=== PATIENT | male | born 1950 | race Caucasian/White ===

== ENCOUNTER 2022-10-07 10:10 | Inpatient (IN) | payer OTHER ==
--- OUTSIDE RECORDS SUMMARY | 2022-10-07 10:16 | XMS REPORT | Continuity of Care Document ---
:1950 Author Organization [facility] t Address [address] [place] [address] [address] [place] [address] Care Team Providers Name Role Phone PANT ANN COELLO Attending Clinician Unavailable LILIBETH GUEVARA Attending Clinician Unavailable A_Carlos Attending Clinician Unavailable RAÚL Attending Clinician Unavailable EDMAR_Mariana Attending Clinician Unavailable NATHANIEL HYATT Attending Clinician Unavailable A_Carlos Admitting Clinician Unavailable RAÚL Admitting Clinician Unavailable EDMAR_G Admitting Clinician Unavailable NATHANIEL HYATT Admitting Clinician Unavailable Payers Payer Name Policy Type Policy Number Effective Date Expiration Date S apurva [facility] [id number] 2022 (MEDICARE 00:00:00 REPLACEMENT/ADVANTA GE - HMO) [employer] - MEDICARE [id number] COMPLETE (MEDICARE REPLACEMENT HMO) [facility] - [id number] MEDICARE SOLUTIONS - MEDICARE COMPLETE (MEDICARE REPLACEMENT PPO) [facility] - [id number] PHYSICIAN HEALTH CHOICE (MEDICARE REPLACEMENT HMO) Problems Condition Condition Condition Status Onset Resolution Last Treating Co mments Source Name Details Category Date Date Treatment Clinician Date 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 00:00: Medica l of colon of Colon 00 Group and/or And/or rectum Rectum 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 Lung 00:00: Medical disease Disease 00 Group Unintentio Unintentio Problem Active [facility] nal weight nal Weight 3-14 da loss Loss 00:00: Medical 00 Group 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 Social History Smoking Status Start Date Stop Date Source Former Smoker [facility] Medications Ordered Filled Start Stop Current Ordering Indication Dosage Frequency Signature Comments Components Source Medication Medication Date Date Medication? Clinician (SIG) Name Name albuterol albuterol No 2puff(s Q4H albuterol [place] sulfate 90 sulfate 90 ) sulfate 90 da mcg/actuati mcg/actuati mcg/actuat Medical on breath on breath ion breath Group activated activated activated powder powder powder inhaler inhaler inhaler Inhale 2 Inhale 2 Inhale 2 puffs every puffs every puffs 4 hours by 4 hours by every 4 inhalation inhalation hours by route. route. inhalation route. atorvastati atorvastati No 1 Q1D atorvastat [place] n 80 mg n 80 mg in 80 mg da tablet Take tablet Take tablet Medical 1 tablet 1 tablet Take 1 Group every day every day tablet by oral by oral every day route. route. by oral route. budesonide- budesonide- No 2puff(s BID budesonide [place] formoterol formoterol ) -formotero da HFA 80 HFA 80 l HFA 80 Medical mcg-4.5 mcg-4.5 mcg-4.5 Group mcg/actuati mcg/actuati mcg/actuat on aerosol on aerosol ion inhaler inhaler aerosol Inhale 2 Inhale 2 inhaler puffs twice puffs twice Inhale 2 a day by a day by puffs inhalation inhalation twice a route. route. day by inhalation route. ezetimibe ezetimibe No 1 Q1D ezetimibe [facility] 10 mg 10 mg 10 mg da tablet Take tablet Take tablet Medical 1 tablet 1 tablet Take 1 Group every day every day tablet by oral by oral every day route. route. by oral route. isosorbide isosorbide No 1 Q1D isosorbide [facility] mononitrate mononitrate mononitrat da ER 30 mg ER 30 mg e ER 30 mg M edical tablet,exte tablet,exte tablet,ext Group nded nded ended release 24 release 24 release 24 hr Take 1 hr Take 1 hr Take 1 tablet tablet tablet every day every day every day by oral by oral by oral route. route. route. lisinopril lisinopril No 1 Q1D lisinopril [facility] 5 mg tablet 5 mg tablet 5 mg d a Take 1 Take 1 tablet Medical tablet tablet Take 1 Group every day every day tablet by oral by oral every day route. route. by oral route. Low Dose Low Dose No 1 Q1D Low Dose [facility] Aspirin 81 Aspirin 81 Aspirin 81 da mg mg mg Medical tablet,dilip tablet,dilip tablet,del Group yed release yed release ayed Take 1 Take 1 release tablet tablet Take 1 every day every day tablet by oral by oral every day route. route. by oral route. metoprolol metoprolol No 1 BID metoprolol [place] tartrate 25 tartrate 25 tartrate da mg tablet mg tablet 25 mg Medi bonnie Take 1 Take 1 tablet Group tablet tablet Take 1 twice a day twice a day tablet by oral by oral twice a route. route. day by oral route. sertraline sertraline No 1 Q1D sertraline [facility] 100 mg 100 mg 100 mg da tablet Take tablet Take tablet Medical 1 tablet 1 tablet Take 1 Group every day every day tablet by oral by oral every day route. route. by oral route. atorvastati atorvastati No 1 Q1D atorvastat [place] n 80 mg n 80 mg in 80 mg da tablet Take tablet Take tablet Medical 1 tablet 1 tablet Take 1 Group every day every day tablet by oral by oral every day route. route. by oral route. ezetimibe ezetimibe No 1 Q1D ezetimibe [place] 10 mg 10 mg 10 mg da tablet Take tablet Take tablet Medical 1 tablet 1 tablet Take 1 Group every day every day tablet by oral by oral every day route. route. by oral route. isosorbide isosorbide No 1 Q1D isosorbide [facility] mononitrate mononitrate mononitrat da ER 30 mg ER 30 mg e ER 30 mg M edical tablet,exte tablet,exte tablet,ext Group nded nded ended release 24 release 24 release 24 hr Take 1 hr Take 1 hr Take 1 tablet tablet tablet every day every day every day by oral by oral by oral route. route. route. lisinopril lisinopril No 1 Q1D lisinopril [facility] 5 mg tablet 5 mg tablet 5 mg d a Take 1 Take 1 tablet Medical tablet tablet Take 1 Group every day every day tablet by oral by oral every day route. route. by oral route. Low Dose Low Dose No 1 Q1D Low Dose [facility] Aspirin 81 Aspirin 81 Aspirin 81 da mg mg mg Medical tablet,dilip tablet,dilip tablet,del Group yed release yed release ayed Take 1 Take 1 release tablet tablet Take 1 every day every day tablet by oral by oral every day route. route. by oral route. metoprolol metoprolol No 1 BID metoprolol [place] tartrate 25 tartrate 25 tartrate da mg tablet mg tablet 25 mg Medi bonnie Take 1 Take 1 tablet Group tablet tablet Take 1 twice a day twice a day tablet by oral by oral twice a route. route. day by oral route. sertraline sertraline No 1 Q1D sertraline [place] 100 mg 100 mg 100 mg da tablet Take tablet Take tablet Medical 1 tablet 1 tablet Take 1 Group every day every day tablet by oral by oral every day route. route. by oral route. tamsulosin tamsulosin No tamsulosin [facility] 0.4 mg 0.4 mg 0.4 mg da capsule capsule capsule Medica l TAKE 1 TAKE 1 TAKE 1 Group CAPSULE BY CAPSULE BY CAPSULE BY MOUTH ONCE MOUTH ONCE MOUTH ONCE DAILY TAKE DAILY TAKE DAILY TAKE FOR URINE FOR URINE FOR URINE PROBLEMS PROBLEMS PROBLEMS atorvastati atorvastati No 1 Q1D atorvastat [place] n 80 mg n 80 mg in 80 mg da tablet Take tablet Take tablet Medical 1 tablet 1 tablet Take 1 Group every day every day tablet by oral by oral every day route. route. by oral route. ezetimibe ezetimibe No 1 Q1D ezetimibe [facility] 10 mg 10 mg 10 mg da tablet Take tablet Take tablet Medical 1 tablet 1 tablet Take 1 Group every day every day tablet by oral by oral every day route. route. by oral route. isosorbide isosorbide No 1 Q1D isosorbide [place] mononitrate mononitrate mononitrat da ER 30 mg ER 30 mg e ER 30 mg M edical tablet,exte tablet,exte tablet,ext Group nded nded ended release 24 release 24 release 24 hr Take 1 hr Take 1 hr Take 1 tablet tablet tablet every day every day every day by oral by oral by oral route. route. route. lisinopril lisinopril No 1 Q1D lisinopril [facility] 5 mg tablet 5 mg tablet 5 mg d a Take 1 Take 1 tablet Medical tablet tablet Take 1 Group every day every day tablet by oral by oral every day route. route. by oral route. Low Dose Low Dose No 1 Q1D Low Dose [facility] Aspirin 81 Aspirin 81 Aspirin 81 da mg mg mg Medical tablet,dilip tablet,dilip tablet,del Group yed release yed release ayed Take 1 Take 1 release tablet tablet Take 1 every day every day tablet by oral by oral every day route. route. by oral route. metoprolol metoprolol No 1 BID metoprolol [place] tartrate 25 tartrate 25 tartrate da mg tablet mg tablet 25 mg Medi bonnie Take 1 Take 1 tablet Group tablet tablet Take 1 twice a day twice a day tablet by oral by oral twice a route. route. day by oral route. sertraline sertraline No 1 Q1D sertraline [place] 100 mg 100 mg 100 mg da tablet Take tablet Take tablet Medical 1 tablet 1 tablet Take 1 Group every day every day tablet by oral by oral every day route. route. by oral route. tamsulosin tamsulosin No 1capsul Q1D tamsulosin [facility] 0.4 mg 0.4 mg e(s) 0.4 mg da capsule capsule capsule Medica l Take 1 Take 1 Take 1 Group capsule capsule capsule every day every day every day by oral by oral by oral route. route. route. atorvastati atorvastati No 1 Q1D atorvastat [place] n 80 mg n 80 mg in 80 mg da tablet Take tablet Take tablet Medical 1 tablet 1 tablet Take 1 Group every day every day tablet by oral by oral every day route. route. by oral route. ezetimibe ezetimibe No 1 Q1D ezetimibe [facility] 10 mg 10 mg 10 mg da tablet Take tablet Take tablet Medical 1 tablet 1 tablet Take 1 Group every day every day tablet by oral by oral every day route. route. by oral route. isosorbide isosorbide No 1 Q1D isosorbide [place] mononitrate mononitrate mononitrat da ER 30 mg ER 30 mg e ER 30 mg M edical tablet,exte tablet,exte tablet,ext Group nded nded ended release 24 release 24 release 24 hr Take 1 hr Take 1 hr Take 1 tablet tablet tablet every day every day every day by oral by oral by oral route. route. route. lisinopril lisinopril No 1 Q1D lisinopril [facility] 5 mg tablet 5 mg tablet 5 mg d a Take 1 Take 1 tablet Medical tablet tablet Take 1 Group every day every day tablet by oral by oral every day route. route. by oral route. Low Dose Low Dose No 1 Q1D Low Dose [facility] Aspirin 81 Aspirin 81 Aspirin 81 da mg mg mg Medical tablet,dilip tablet,dilip tablet,del Group yed release yed release ayed Take 1 Take 1 release tablet tablet Take 1 every day every day tablet by oral by oral every day route. route. by oral route. metoprolol metoprolol No 1 BID metoprolol [facility] tartrate 25 tartrate 25 tartrate da mg tablet mg tablet 25 mg Medi bonnie Take 1 Take 1 tablet Group tablet tablet Take 1 twice a day twice a day tablet by oral by oral twice a route. route. day by oral route. sertraline sertraline No 1 Q1D sertraline [facility] 100 mg 100 mg 100 mg da tablet Take tablet Take tablet Medical 1 tablet 1 tablet Take 1 Group every day every day tablet by oral by oral every day route. route. by oral route. tamsulosin tamsulosin No tamsulosin [place] 0.4 mg 0.4 mg 0.4 mg da capsule capsule capsule Medica l TAKE 1 TAKE 1 TAKE 1 Group CAPSULE BY CAPSULE BY CAPSULE BY MOUTH ONCE MOUTH ONCE MOUTH ONCE DAILY TAKE DAILY TAKE DAILY TAKE FOR URINE FOR URINE FOR URINE PROBLEMS PROBLEMS PROBLEMS Vital Signs Vital Name Observation Time Observation Value Comments Source BP Diastolic 2022-09-09 00:00:00 69 mm[Hg] [facility] Height 2022-09-09 00:00:00 67.25 [in_i] [facility] BMI (Body Mass 2022-09-09 00:00:00 24[facility]8 [facility] BP Systolic 2022-09-09 00:00:00 119 mm[Hg] [facility] Body Weight 2022-09-09 00:00:00 2555.2 [oz_av] [facility] BP Diastolic 2022-09-02 00:00:00 65 mm[Hg] [facility] Height 2022-09-02 00:00:00 67.25 [in_i] [facility] BMI (Body Mass 2022-09-02 00:00:00 24.8 [facility] BP Systolic 2022-09-02 00:00:00 105 mm[Hg] [facility] Body Weight 2022-09-02 00:00:00 2550.4 [oz_av] [facility] BP Diastolic 2022-08-26 00:00:00 77 mm[Hg] [facility] Height 2022-08-26 00:00:00 67.25 [in_i] [facility] BMI (Body Mass 2022-08-26 00:00:00 24.8 [facility]/m2 [facility] BP Systolic 2022-08-26 00:00:00 145 mm[Hg] [facility] Body Weight 2022-08-26 00:00:00 2547.2 [oz_av] [facility] BP Diastolic 2020-02-07 00:00:00 62 mm[Hg] [facility] Height 2020-02-07 00:00:00 69 [in_i] [facility] BMI (Body Mass 2020-02-07 00:00:00 25.6 [facility] BP Systolic 2020-02-07 00:00:00 136 mm[Hg] [facility] Body Weight 2020-02-07 00:00:00 173.6 [lb_av] [facility] BP Diastolic 2020-01-10 00:00:00 68 mm[Hg] [facility] Height 2020-01-10 00:00:00 69 [in_i] [facility] BMI (Body Mass 2020-01-10 00:00:00 27.7 kg/m2 [facility] Medical Index) Group BP Systolic 2020-01-10 00:00:00 140 mm[Hg] [facility] Body Weight 2020-01-10 00:00:00 187.8 [lb_av] [facility] BP Diastolic 2019-08-11 00:00:00 78 mm[facility]Hg] [facility] Height 2019-08-11 00:00:00 69 [in_i] [facility] BMI (Body Mass 2019-08-11 00:00:00 27 kg/m2 [facility] Medical Index) Group BP Systolic 2019-08-11 00:00:00 140 mm[facility]Hg] [facility] Body Weight 2019-08-11 00:00:00 182.6 [lb_av] [facility] Procedures Procedure Date / Time Performed Performing Clinician Sour e NM, bone scan, whole 2022-09-09 00:00:00 [facility] body Group US, abdomen, complete 2022-08-26 00:00:00 [facility] Group LDCT, chest, for lung 2022-08-26 00:00:00 [facility] Medical cancer screening Group NM, bone scan, whole 2022-08-26 00:00:00 [facility] Medical body Group Plan of Care Planned Activity Planned Date Details Comments Source Diagnostic Test 2022-08-26 TSH, serum or plasma Richardson maranda [employer] Pending 00:00:00 [code = TSH, serum or Group plasma] Diagnostic Test 2022-08-26 CMP, serum or plasma Richardson maranda [employer] Pending 00:00:00 [code = CMP, serum or Group plasma] Diagnostic Test 2022-08-26 CBC w/ auto diff [code = [facility] Pending 00:00:00 CBC w/ auto diff] Group Diagnostic Test 2022-08-26 hemoglobin A1c, QN, [facility] Pending 00:00:00 blood [code = hemoglobin Leah up A1c, QN, blood] Diagnostic Test 2022-08-26 PSA, serum or plasma [facility] Pending 00:00:00 [code = PSA, serum or Group plasma] Diagnostic Test 2022-08-26 urinalysis, complete [facility] Pending 00:00:00 [code = urinalysis, Group complete] Diagnostic Test 2022-08-26 carcinoembryonic Ag, [facility] Pending 00:00:00 quant, serum or plasma Group [code = carcinoembryonic Ag, quant, serum or plasma] Encounters Start End Encounter Admission Attending Care Care Encounter Source Date/Time Date/Time Type Type Clinicians Facility Department ID 2022-10-01 2022-10-01 Outpatient EL PANT [facility] [id number] [facility] 07:38:00 07:38:00 MODE, -[id number] kay white [facility] 2022-09-10 2022-09-10 Outpatient LILIBETH MURILLO [facility] D000 [id number] [place] 10:34:00 10:34:00 -[id number] [facility] 2022-09-09 2022-09-09 Outpatient UR LILIBETH GUEVARA [facility] D000 [id number] [place] 11:21:00 11:21:00 -[id number] [facility] 2022-09-09 2022-09-09 Lilibeth MCCONNELL [place] - [id number] [facility] 00:00:00 00:00:00 MD Carlos: [address] [place] [address] , Ph. 2022-09-04 2022-09-04 Inpatient LILIBETH MURILLO [facility] [id number] [place] 08:00:00 07:54:00 -[id number] [facility] 2022-09-02 2022-09-02 Lilibeth MCCONNELL [place] - [id number] [facility] 00:00:00 00:00:00 MD Carlos: [address] [place] [address] , Ph. 2022-08-26 2022-08-26 Outpatient EL LILIBETH GUEVARA [facility] D000 [id number] [place] 10:28:00 10:28:00 -[id number] [facility] 2022-08-26 2022-08-26 [place] [id number] [place] 00:00:00 00:00:00 0314 [facility] 2022-08-26 2022-08-26 [place] [id number] [place] 00:00:00 00:00:00 0321 [facility] 2022-08-26 2022-08-26 [place] [id number] [place] 00:00:00 00:00:00 0328 [facility] 2022-08-26 2022-08-26 Lilibeth Goodwin [facility] [place] - [id number] [facility] 00:00:00 00:00:00 MD Carlos: [facility] [address] [place] [address] [address], [place] [address] , Ph. 2021-12-27 2021-12-27 Outpatient AMBREEN_CHRIS BANSAL [facility] [id number] [place] 12:47:00 12:47:00 HANA 0715 [facility] 2020-05-02 2020-05-02 Outpatient IHDE_G MMG [facility] [id number] [place] 02:25:00 02:25:00 1118 [facility] 2020-02-07 2020-02-07 [place] [id number] [place] 08:47:00 08:47:00 0825 [facility] 2020-02-07 2020-02-07 Nathaniel [facility] [place] - [id number] [facility] 00:00:00 00:00:00 Vel Umana MD: [facility] [address], [place] [address] , Ph. [phone] 2020-02-01 2020-02-01 Outpatient IHDE_G MMG MMG [id number] [place] 09:59:00 09:59:00 0819 [facility] 2020-01-23 2020-01-27 Inpatient SYED IHDNATHANIEL Chan [facility] [id number] [place] 17:20:00 16:32:00 -[id number] [facility] 2020-01-23 2020-01-23 Outpatient IHDE_G MMG MMG [id number] [place] 02:28:00 02:28:00 0810 [facility] 2020-01-18 2020-01-18 Outpatient IHDE_G MMG MMG [id number] [place] 09:28:00 09:28:00 0806 [facility] 2020-01-18 2020-01-18 Outpatient NATHANIEL PACK [facility] [id number] [place] 08:34:00 08:34:00 -[id number] [facility] 2020-01-10 2020-01-10 Outpatient IHDE_G MMG MMG [id number] [place] 07:10:00 07:10:00 0728 [facility] 2020-01-10 2020-01-10 Nathaniel MMG [place] - [id number] [facility] 00:00:00 00:00:00 Vel Umana MD: [facility] [address], surgery [place] [address] , Ph. [phone] 2019-08-11 2019-08-11 Outpatient IHDE_G MMG MMG [id number] [place] 08:06:00 08:06:00 0227 [facility] 2019-08-11 2019-08-11 Nathaniel MM [place] - [id number] [facility] 00:00:00 00:00:00 Vel Umana MD: [facility] [address], surgery [place] [id number] , Ph. [phone] 2019-08-08 2019-08-08 Outpatient IHDE_G MMG MMG [id number] [place] 11:11:00 11:11:00 0224 Medical Group 2019-08-08 2019-08-08 Outpatient IHDE_G MMG [facility] [id number] [place] 11:11:00 11:11:00 6 [facility] Group Results Test Description Test Time Test Comments Results Result Comments Source manual diff (reflexed) 2022-08-26 13:14:00 Test Item Value Reference Range Interpretation Comme nts neutrophils (test code = neutrophils) 82 % 37.0-80.0 H band (test code = band) 0 % 0-3 lymphocyte (test code = lymphocyte) 4 % 10-50 L atypical lymph (test code = atypical lymph) 0 % monocyte (test code = monocyte) 14 % 0-12 H eosinophil (test code = eosinophil) 0 % 0-7 basophil (test code = basophil) 0 % 0-3 differential comment (test code = differential comment) abs neutrophil count (man) (test code = abs neutrophil 12.60 K/uL 1.78-5.38 H count (man)) abs lymph count (man) (test code = abs lymph count (man)) 0.60 K/uL 1.32-3.57 L abs monocyte count (man) (test code = abs monocyte count 2.10 K/uL 0.30-0.82 H (man)) abs eosinophil count (man) (test code = abs eosinophil 0.00 K/uL 0.04-0.54 L count (man)) abs basophil count (man) (test code = abs basophil count 0.00 K/uL 0.01-0.08 L (man)) platelet estimate (test code = platelet estimate) adequate adeq uate platelet morphology (test code = platelet morphology) normal normal anisocytosis (test code = anisocytosis) slight A macrocytosis (test code = macrocytosis) slight A stomatocyte (test code = stomatocyte) occassional A [facility]2022-08-26 13:14:00 Test Item Value Reference Range Interpretation Comments neutrophils (test code = 82 % 37.0-80.0 H neutrophils) band (test code = band) 0 % 0-3 lymphocyte (test code = 4 % 10-50 L lymphocyte) atypical lymph (test code = 0 % atypical lymph) monocyte (test code = monocyte) 14 % 0-12 H eosinophil (test code = 0 % 0-7 eosinophil) basophil (test code = basophil) 0 % 0-3 differential comment (test code = differential comment) abs neutrophil count (man) (test 12.60 K/uL 1.78-5.38 H code = abs neutrophil count (man)) abs lymph count (man) (test code 0.60 K/uL 1.32-3.57 L = abs lymph count (man)) abs monocyte count (man) (test 2.10 K/uL 0.30-0.82 H code = abs monocyte count (man)) abs eosinophil count (man) (test 0.00 K/uL 0.04-0.54 L code = abs eosinophil count (man)) abs basophil count (man) (test 0.00 K/uL 0.01-0.08 L code = abs basophil count (man)) platelet estimate (test code = adequate adequate platelet estimate) platelet morphology (test code = normal normal platelet morphology) anisocytosis (test code = slight A anisocytosis) macrocytosis (test code = slight A macrocytosis) stomatocyte (test code = occassional A stomatocyte) [facility] [id number] 12:13:00 Test Item Value Reference Range Interpretation Comments thyroid stimulating hormone L 2.42 uIU/mL 0.36-3.74 (test code = thyroid stimulating hormone L) [facility] [id number] 12:13:00 Test Item Value Reference Range Interpretation Comments thyroid stimulating hormone L 2.42 uIU/mL 0.36-3.74 (test code = thyroid stimulating hormone L) [facility] [id number] 12:13:00 Test Item Value Reference Range Interpretation Comments thyroid stimulating hormone L 2.42 uIU/mL 0.36-3.74 (test code = thyroid stimulating hormone L) [facility] [id number] 12:13:00 Test Item Value Reference Range Interpretation Comments thyroid stimulating hormone L 2.42 uIU/mL 0.36-3.74 (test code = thyroid stimulating hormone L) [facility] 12:03:00 Test Item Value Reference Range Interpretation Comments cea (test code = cea) 65.32 NG/mL 0-4.7 [facility] prostate [id number] 12:03:00 Test Item Value Reference Range Interpretation Comments total prostate screening (test 0.90 NG/mL 0.0-4.00 code = total prostate screening) [facility]:03[facility]00 Test Item Value Reference Range Interpretation Comments cea (test code = cea) 65.32 NG/mL 0-4.7 H [facility] prostate [id number] 12:03:00 Test Item Value Reference Range Interpretation Comments total prostate screening (test 0.90 NG/mL 0.0-4.00 code = total prostate screening) [place] [id number] 12:03:00 Test Item Value Reference Range Interpretation Comments cea (test code = cea) 65.32 NG/mL 0-4.7 H [facility] prostate [id number] 12:03:00 Test Item Value Reference Range Interpretation Comments total prostate screening (test 0.90 NG/mL 0.0-4.00 code = total prostate screening) [place] [id number] 12:03:00 Test Item Value Reference Range Interpretation Comments cea (test code = cea) 65.32 NG/mL 0-4.7 H [facility] prostate [id number] 12:03:00 Test Item Value Reference Range Interpretation Comments total prostate screening (test 0.90 NG/mL 0.0-4.00 code = total prostate screening) [facility] [id number] 12:02:00 Test Item Value Reference Range Interpretation Comments Hemoglobin A1c/Hemoglobin.total in 4.8 % 4.0-6.0 Blood (test code = 4548-4) [id number] 12:02:00 Test Item Value Reference Range Interpretation Comments Hemoglobin A1c/Hemoglobin.total in 4.8 % 4.0-6.0 Blood (test code = 4548-4) [facility] 2000 [facility] - Serum or Plasma 2022-08-26 11:59:00 Test Item Value Reference Range Interpretation Comments glucose (test code = glucose) 99 mg/dL 82-115 blood urea nitrogen (test code = 12 mg/dL 8-23 blood urea nitrogen) osmolality calculated,serum (test 264 mOsm/kg 280-300 L code = osmolality calculated,serum) creatinine (test code = 0.78 mg/dL 0.70-1.20 creatinine) glomerular filtration rate (test > 60.00 code = glomerular filtration rate) BUN/creatinine ratio (test code = 15.4 12.0-20.0 BUN/creatinine ratio) sodium level (test code = sodium 132 mmol/L 135-145 L level) potassium level (test code = 4.3 mmol/L 3.5-5.2 potassium level) chloride level (test code = 92 mmol/L 98-108 L chloride level) CO2 (test code = CO2) 27 mmol/L 21-32 anion gap (test code = anion gap) 17.3 mEq/L 12.0-20.0 calcium level (test code = 9.9 mg/dL 8.8-10.2 calcium level) total protein (test code = total 7.2 g/dL 6.6-8.7 protein) albumin (test code = albumin) 3.1 g/dL 3.5-5.2 L globulin (test code = globulin) 4.1 g/dL 1.5-4.5 A/G ratio (test code = A/G ratio) 0.8 >1.0 bilirubin,total (test code = 2.0 mg/dL 0.0-1.2 H bilirubin,total) AST/SGOT (test code = AST/SGOT) 114 U/L 15-40 H ALT/SGPT (test code = ALT/SGPT) 31 U/L 0-41 alkaline phosphatase, total (test 1046 U/L 40-130 H code = alkaline phosphatase, total) [facility] - [facility] or Plasma 2022-08-26 11:59:00 Test Item Value Reference Range Interpretation Comments glucose (test code = glucose) 99 mg/dL 82-115 blood urea nitrogen (test code = 12 mg/dL 8-23 blood urea nitrogen) osmolality calculated,serum (test 264 mOsm/kg 280-300 L code = osmolality calculated,serum) creatinine (test code = 0.78 mg/dL 0.70-1.20 creatinine) glomerular filtration rate (test > 60.00 code = glomerular filtration rate) BUN/creatinine ratio (test code = 15.4 12.0-20.0 BUN/creatinine ratio) sodium level (test code = sodium 132 mmol/L 135-145 L level) potassium level (test code = 4.3 mmol/L 3.5-5.2 potassium level) chloride level (test code = 92 mmol/L 98-108 L chloride level) CO2 (test code = CO2) 27 mmol/L 21-32 anion gap (test code = anion gap) 17.3 mEq/L 12.0-20.0 calcium level (test code = 9.9 mg/dL 8.8-10.2 calcium level) total protein (test code = total 7.2 g/dL 6.6-8.7 protein) albumin (test code = albumin) 3.1 g/dL 3.5-5.2 L globulin (test code = globulin) 4.1 g/dL 1.5-4.5 A/G ratio (test code = A/G ratio) 0.8 >1.0 bilirubin,total (test code = 2.0 mg/dL 0.0-1.2 H bilirubin,total) AST/SGOT (test code = AST/SGOT) 114 U/L 15-40 H ALT/SGPT (test code = ALT/SGPT) 31 U/L 0-41 alkaline phosphatase, total (test 1046 U/L 40-130 H code = alkaline phosphatase, total) [facility] W Auto Differential panel - [id number] 11:41:00 Test Item Value Reference Range Interpretation Comments white blood count (test code = 15.4 K/uL 4.0-12.3 H white blood count) red blood count (test code = red 4.32 M/uL 3.80-5.80 blood count) hemoglobin (test code = 12.1 g/dL 11.7-17.2 hemoglobin) hematocrit (test code = 39.7 % 35.0-51.0 hematocrit) mean corpuscular volume (test code 91.9 fL 83.0-100.0 = mean corpuscular volume) mean corpuscular hemoglobin (test 28.0 pg 26.8-33.4 code = mean corpuscular hemoglobin) mean corpuscular HGB conc (test 30.5 g/dL 30.0-35.0 code = mean corpuscular HGB conc) red cell distribution width (test 17.1 % 12.0-14.0 H code = red cell distribution width) platelet count (test code = 409 K/uL 175-450 platelet count) mean platelet volume (test code = 10.2 fL 9.4-12.6 mean platelet volume) NRBC% (test code = NRBC%) 0 /100 WBC 0-0.2 NRBC# (test code = NRBC#) 0 K/uL [facility] W Auto Differential panel - [id number] 11:41:00 Test Item Value Reference Range Interpretation Comments white blood count (test code = 15.4 K/uL 4.0-12.3 H white blood count) red blood count (test code = red 4.32 M/uL 3.80-5.80 blood count) hemoglobin (test code = 12.1 g/dL 11.7-17.2 hemoglobin) hematocrit (test code = 39.7 % 35.0-51.0 hematocrit) mean corpuscular volume (test code 91.9 fL 83.0-100.0 = mean corpuscular volume) mean corpuscular hemoglobin (test 28.0 pg 26.8-33.4 code = mean corpuscular hemoglobin) mean corpuscular HGB conc (test 30.5 g/dL 30.0-35.0 code = mean corpuscular HGB conc) red cell distribution width (test 17.1 % 12.0-14.0 H code = red cell distribution width) platelet count (test code = 409 K/uL 175-450 platelet count) mean platelet volume (test code = 10.2 fL 9.4-12.6 mean platelet volume) NRBC% (test code = NRBC%) 0 /100 WBC 0-0.2 NRBC# (test code = NRBC#) 0 K/uL [id number] 11:40:00 Test Item Value Reference Range Interpretation Comments color, urine (test code = yellow color, urine) appearance, urine (test code = clear clear appearance, urine) urine glucose (test code = negative negative urine glucose) bilirubin, urine (test code = 1+ (small) negative A bilirubin, urine) ketone, urine (test code = negative negative ketone, urine) specific gravity,urine (test 1.019 1.003-1.030 code = specific gravity,urine) blood urine (test code = blood negative negative urine) pH,urine (test code = pH,urine) 6.000 5-9 protein urine (UA) (test code = 1+ (50 mg/dL) negative A protein urine (UA)) urobilinogen, urine (test code 4.0-6.0 0.2-1.0 A = urobilinogen, urine) nitrate, urine (test code = negative negative nitrate, urine) urine leukocyte esterase (test negative negative code = urine leukocyte esterase) RBC, urine (test code = RBC, 1-5 0-5 urine) WBC, urine (test code = WBC, 1-5 0-5 urine) epithelial cell (test code = 1-5 0-5 epithelial cell) bacteria, urine (test code = few none detect bacteria, urine) casts,urine (test code = 20-29 none detect A casts,urine) urine culture added? (test code no = urine culture added?) mucus, urine (test code = 1+ none detect mucus, urine) path casts,U (test code = path none detect A casts,U) [id number] 11:40:00 Test Item Value Reference Range Interpretation Comments color, urine (test code = yellow color, urine) appearance, urine (test code = clear clear appearance, urine) urine glucose (test code = negative negative urine glucose) bilirubin, urine (test code = 1+ (small) negative A bilirubin, urine) ketone, urine (test code = negative negative ketone, urine) specific gravity,urine (test 1.019 1.003-1.030 code = specific gravity,urine) blood urine (test code = blood negative negative urine) pH,urine (test code = pH,urine) 6.000 5-9 protein urine (UA) (test code = 1+ (50 mg/dL) negative A protein urine (UA)) urobilinogen, urine (test code 4.0-6.0 0.2-1.0 A = urobilinogen, urine) nitrate, urine (test code = negative negative nitrate, urine) urine leukocyte esterase (test negative negative code = urine leukocyte esterase) RBC, urine (test code = RBC, 1-5 0-5 urine) WBC, urine (test code = WBC, 1-5 0-5 urine) epithelial cell (test code = 1-5 0-5 epithelial cell) bacteria, urine (test code = few none detect bacteria, urine) casts,urine (test code = 20-29 none detect A casts,urine) urine culture added? (test code no = urine culture added?) mucus, urine (test code = 1+ none detect mucus, urine) path casts,U (test code = path none detect A casts,U) [facility] [id number] 11:40:00 Test Item Value Reference Range Interpretation Comments color, urine (test code = yellow color, urine) appearance, urine (test code = clear clear appearance, urine) urine glucose (test code = negative negative urine glucose) bilirubin, urine (test code = 1+ (small) negative A bilirubin, urine) ketone, urine (test code = negative negative ketone, urine) specific gravity,urine (test 1.019 1.003-1.030 code = specific gravity,urine) blood urine (test code = blood negative negative urine) pH,urine (test code = pH,urine) 6.000 5-9 protein urine (UA) (test code = 1+ (50 mg/dL) negative A protein urine (UA)) urobilinogen, urine (test code 4.0-6.0 0.2-1.0 A = urobilinogen, urine) nitrate, urine (test code = negative negative nitrate, urine) urine leukocyte esterase (test negative negative code = urine leukocyte esterase) RBC, urine (test code = RBC, 1-5 0-5 urine) WBC, urine (test code = WBC, 1-5 0-5 urine) epithelial cell (test code = 1-5 0-5 epithelial cell) bacteria, urine (test code = few none detect bacteria, urine) casts,urine (test code = 20-29 none detect A casts,urine) urine culture added? (test code no = urine culture added?) mucus, urine (test code = 1+ none detect mucus, urine) path casts,U (test code = path none detect A casts,U) [facility] [id number] 11:40:00 Test Item Value Reference Range Interpretation Comments color, urine (test code = yellow color, urine) appearance, urine (test code = clear clear appearance, urine) urine glucose (test code = negative negative urine glucose) bilirubin, urine (test code = 1+ (small) negative A bilirubin, urine) ketone, urine (test code = negative negative ketone, urine) specific gravity,urine (test 1.019 1.003-1.030 code = specific gravity,urine) blood urine (test code = blood negative negative urine) pH,urine (test code = pH,urine) 6.000 5-9 protein urine (UA) (test code = 1+ (50 mg/dL) negative A protein urine (UA)) urobilinogen, urine (test code 4.0-6.0 0.2-1.0 A = urobilinogen, urine) nitrate, urine (test code = negative negative nitrate, urine) urine leukocyte esterase (test negative negative code = urine leukocyte esterase) RBC, urine (test code = RBC, 1-5 0-5 urine) WBC, urine (test code = WBC, 1-5 0-5 urine) epithelial cell (test code = 1-5 0-5 epithelial cell) bacteria, urine (test code = few none detect bacteria, urine) casts,urine (test code = 20-29 none detect A casts,urine) urine culture added? (test code no = urine culture added?) mucus, urine (test code = 1+ none detect mucus, urine) path casts,U (test code = path none detect A casts,U) [facility] W Auto Differential panel - [id number] 01:31:00 Test Item Value Reference Range Interpretation Comments white blood count (test code = 9.5 K/uL 4.0-12.3 white blood count) red blood count (test code = red 2.94 M/uL 3.80-5.80 L blood count) hemoglobin (test code = 9.0 g/dL 11.7-17.2 L hemoglobin) hematocrit (test code = 28.6 % 35.0-51.0 L hematocrit) MCV [Entitic volume] (test code = 97.3 fL 83-100 48272-5) mean corpuscular hemoglobin (test 30.6 pg 26.8-33.4 code = mean corpuscular hemoglobin) mean corpuscular HGB conc (test 31.5 g/dL 30-35 code = mean corpuscular HGB conc) red cell distribution width (test 14.5 % 12.0-14.0 H code = red cell distribution width) platelet count (test code = 310 K/uL 175-450 platelet count) mean platelet volume (test code = 9.5 fL 9.4-12.6 mean platelet volume) Segmented neutrophils/100 73.8 % 44.7-82.4 leukocytes in Blood (test code = 02833-5) Immature granulocytes [#/volume] 0.0 K/uL 0.0-0.03 in Blood (test code = 86419-2) lymphocyte% (test code = 13.0 % 10.0-50.0 lymphocyte%) mono % (test code = mono %) 9.5 % 3.9-13.4 eos % (test code = eos %) 3.2 % 0.0-6.4 Basophils/100 leukocytes in 0.2 % 0.2-1.2 Unspecified specimen (test code = 49111-2) Band form neutrophils [#/volume] 7.00 K/uL 1.78-5.38 H in Blood (test code = 43039-0) Lymphocytes [#/volume] in 1.2 K/uL 1.32-3.57 L Unspecified specimen by Automated count (test code = 44511-3) mono # (test code = mono #) 0.90 K/uL 0.30-0.82 H eos # (test code = eos #) 0.30 K/uL 0.04-0.54 basophil # (test code = basophil 0.02 K/uL 0.01-0.08 #) NRBC% (test code = NRBC%) 0 /100 WBC 0-0.2 NRBC# (test code = NRBC#) 0 K/uL [facility], method unspecified - [id number] 01:31:00NeutrophilsBandLymphocyteAtypical LymphMonocyteEosinophilBasophilMyelocytePlatelet EstimatePlatelet M orphologyToxic GranulationRouleauMerit Health WesleyComprehensive metabolic 2000 panel - Serum or [id number] 01:31:00 Test Item Value Reference Range Interpretation Comments Glucose [Mass/volume] in Serum or 111 mg/dL 82-115 Plasma (test code = 2345-7) Urea nitrogen [Mass/volume] in 7 mg/dL 8-23 L Serum or Plasma (test code = 3094-0) osmolality calculated,serum (test 269 mOsm/kg 280-300 L code = osmolality calculated,serum) creatinine (test code = 0.8 mg/dL 0.70-1.20 creatinine) glomerular filtration rate (test >60.00 code = glomerular filtration rate) Urea nitrogen/Creatinine [Mass 8.8 12-20 L Ratio] in Serum or Plasma (test code = 3097-3) sodium level (test code = sodium 135 mmol/L 135-145 level) potassium level (test code = 4.3 mmol/L 3.5-5.2 potassium level) chloride level (test code = 97 mmol/L 98-108 L chloride level) CO2 (test code = CO2) 26 mmol/L 21-32 anion gap (test code = anion gap) 16.3 mEq/L 12-20 calcium level (test code = 8.6 mg/dL 8.8-10.2 L calcium level) total protein (test code = total 5.4 g/dL 6.6-8.7 L protein) albumin (test code = albumin) 2.8 g/dL 3.5-5.2 L globulin (test code = globulin) 2.6 gm/dL A/G ratio (test code = A/G ratio) 1.1 >1.0 bilirubin,total (test code = 0.6 mg/dL 0.0-1.2 bilirubin,total) AST/SGOT (test code = AST/SGOT) 12 U/L 15-40 L Alanine aminotransferase 8 U/L 0-41 [Enzymatic activity/volume] in Serum or Plasma (test code = 1742-6) Alkaline phosphatase [Enzymatic 58 U/L 40-130 activity/volume] in Serum or Plasma (test code = 6768-6) [facility] Differential [facility] - [id number] 01:31:00 Test Item Value Reference Range Interpretation Comments white blood count (test code = 9.5 K/uL 4.0-12.3 white blood count) red blood count (test code = red 2.94 M/uL 3.80-5.80 L blood count) hemoglobin (test code = 9.0 g/dL 11.7-17.2 L hemoglobin) hematocrit (test code = 28.6 % 35.0-51.0 L hematocrit) MCV [Entitic volume] (test code = 97.3 fL 83-100 34086-1) mean corpuscular hemoglobin (test 30.6 pg 26.8-33.4 code = mean corpuscular hemoglobin) mean corpuscular HGB conc (test 31.5 g/dL 30-35 code = mean corpuscular HGB conc) red cell distribution width (test 14.5 % 12.0-14.0 H code = red cell distribution width) platelet count (test code = 310 K/uL 175-450 platelet count) mean platelet volume (test code = 9.5 fL 9.4-12.6 mean platelet volume) Segmented neutrophils/100 73.8 % 44.7-82.4 leukocytes in Blood (test code = 04692-0) Immature granulocytes [#/volume] 0.0 K/uL 0.0-0.03 in Blood (test code = 30440-3) lymphocyte% (test code = 13.0 % 10.0-50.0 lymphocyte%) mono % (test code = mono %) 9.5 % 3.9-13.4 eos % (test code = eos %) 3.2 % 0.0-6.4 Basophils/100 leukocytes in 0.2 % 0.2-1.2 Unspecified specimen (test code = 51401-0) Band form neutrophils [#/volume] 7.00 K/uL 1.78-5.38 H in Blood (test code = 94284-0) Lymphocytes [#/volume] in 1.2 K/uL 1.32-3.57 L Unspecified specimen by Automated count (test code = 59401-0) mono # (test code = mono #) 0.90 K/uL 0.30-0.82 H eos # (test code = eos #) 0.30 K/uL 0.04-0.54 basophil # (test code = basophil 0.02 K/uL 0.01-0.08 #) NRBC% (test code = NRBC%) 0 /100 WBC 0-0.2 NRBC# (test code = NRBC#) 0 K/uL [facility], method unspecified - [id number] 01:31:00NeutrophilsBandLymphocyteAtypical LymphMonocyteEosinophilBasophilMyelocytePlatelet EstimatePlatelet M orphologyToxic GranulationRouleauMaPatient's Choice [facility] CountyComprehensive metabolic 2000 panel - Serum or [id number] 01:31:00 Test Item Value Reference Range Interpretation Comments Glucose [Mass/volume] in Serum or 111 mg/dL 82-115 Plasma (test code = 2345-7) Urea nitrogen [Mass/volume] in 7 mg/dL 8-23 L Serum or Plasma (test code = 3094-0) osmolality calculated,serum (test 269 mOsm/kg 280-300 L code = osmolality calculated,serum) creatinine (test code = 0.8 mg/dL 0.70-1.20 creatinine) glomerular filtration rate (test >60.00 code = glomerular filtration rate) Urea nitrogen/Creatinine [Mass 8.8 12-20 L Ratio] in Serum or Plasma (test code = 3097-3) sodium level (test code = sodium 135 mmol/L 135-145 level) potassium level (test code = 4.3 mmol/L 3.5-5.2 potassium level) chloride level (test code = 97 mmol/L 98-108 L chloride level) CO2 (test code = CO2) 26 mmol/L 21-32 anion gap (test code = anion gap) 16.3 mEq/L 12-20 calcium level (test code = 8.6 mg/dL 8.8-10.2 L calcium level) total protein (test code = total 5.4 g/dL 6.6-8.7 L protein) albumin (test code = albumin) 2.8 g/dL 3.5-5.2 L globulin (test code = globulin) 2.6 gm/dL A/G ratio (test code = A/G ratio) 1.1 >1.0 bilirubin,total (test code = 0.6 mg/dL 0.0-1.2 bilirubin,total) AST/SGOT (test code = AST/SGOT) 12 U/L 15-40 L Alanine aminotransferase 8 U/L 0-41 [Enzymatic activity/volume] in Serum or Plasma (test code = 1742-6) Alkaline phosphatase [Enzymatic 58 U/L 40-130 activity/volume] in Serum or Plasma (test code = 6768-6) [facility] W Auto Differential panel - [id number] 04:16:00 Test Item Value Reference Range Interpretation Comments white blood count (test code = 11.3 K/uL 4.0-12.3 white blood count) red blood count (test code = red 2.91 M/uL 3.80-5.80 L blood count) hemoglobin (test code = 9.0 g/dL 11.7-17.2 L hemoglobin) hematocrit (test code = 28.2 % 35.0-51.0 L hematocrit) MCV [Entitic volume] (test code = 96.9 fL 83-100 90087-5) mean corpuscular hemoglobin (test 30.9 pg 26.8-33.4 code = mean corpuscular hemoglobin) mean corpuscular HGB conc (test 31.9 g/dL 30-35 code = mean corpuscular HGB conc) red cell distribution width (test 14.5 % 12.0-14.0 H code = red cell distribution width) platelet count (test code = 286 K/uL 175-450 platelet count) mean platelet volume (test code = 9.2 fL 9.4-12.6 L mean platelet volume) Segmented neutrophils/100 78.9 % 44.7-82.4 leukocytes in Blood (test code = 76709-7) Immature granulocytes [#/volume] 0.0 K/uL 0.0-0.03 in Blood (test code = 53847-8) lymphocyte% (test code = 9.2 % 10.0-50.0 L lymphocyte%) mono % (test code = mono %) 9.4 % 3.9-13.4 eos % (test code = eos %) 1.8 % 0.0-6.4 Basophils/100 leukocytes in 0.3 % 0.2-1.2 Unspecified specimen (test code = 48342-4) Band form neutrophils [#/volume] 8.96 K/uL 1.78-5.38 H in Blood (test code = 23190-7) Lymphocytes [#/volume] in 1.0 K/uL 1.32-3.57 L Unspecified specimen by Automated count (test code = 96246-8) mono # (test code = mono #) 1.07 K/uL 0.30-0.82 H eos # (test code = eos #) 0.20 K/uL 0.04-0.54 basophil # (test code = basophil 0.03 K/uL 0.01-0.08 #) NRBC% (test code = NRBC%) 0 /100 WBC 0-0.2 NRBC# (test code = NRBC#) 0 K/uL [facility], method unspecified - [id number] 04:16:00NeutrophilsLymphocyteMonocytePlatelet EstimateMaPatient's Choice [facility] Comprehensive metabolic 2000 panel - Serum or [id number] 04:16:00 Test Item Value Reference Range Interpretation Comments glucose (test code = glucose) 121 mg/dL 82-115 H Urea nitrogen [Mass/volume] in 7 mg/dL 8-23 L Serum or Plasma (test code = 3094-0) osmolality calculated,serum (test 262 mOsm/kg 280-300 L code = osmolality calculated,serum) creatinine (test code = 0.8 mg/dL 0.70-1.20 creatinine) glomerular filtration rate (test >60.00 code = glomerular filtration rate) Urea nitrogen/Creatinine [Mass 8.8 12-20 L Ratio] in Serum or Plasma (test code = 3097-3) sodium level (test code = sodium 131 mmol/L 135-145 L level) Potassium [Moles/volume] in Body 4.4 mmol/L 3.5-5.2 fluid (test code = 2821-7) chloride level (test code = 98 mmol/L 98-108 chloride level) CO2 (test code = CO2) 25 mmol/L 21-32 anion gap (test code = anion gap) 12.4 mEq/L 12-20 calcium level (test code = 8.3 mg/dL 8.8-10.2 L calcium level) total protein (test code = total 5.3 g/dL 6.6-8.7 L protein) albumin (test code = albumin) 2.6 g/dL 3.5-5.2 L globulin (test code = globulin) 2.7 gm/dL A/G ratio (test code = A/G ratio) 1.0 >1.0 bilirubin,total (test code = 0.5 mg/dL 0.0-1.2 bilirubin,total) AST/SGOT (test code = AST/SGOT) 8 U/L 15-40 L Alanine aminotransferase 9 U/L 0-41 [Enzymatic activity/volume] in Serum or Plasma (test code = 1742-6) Alkaline phosphatase [Enzymatic 52 U/L 40-130 activity/volume] in Serum or Plasma (test code = 6768-6) [facility] W Auto Differential panel - [id number] 04:16:00 Test Item Value Reference Range Interpretation Comments white blood count (test code = 11.3 K/uL 4.0-12.3 white blood count) red blood count (test code = red 2.91 M/uL 3.80-5.80 L blood count) hemoglobin (test code = 9.0 g/dL 11.7-17.2 L hemoglobin) hematocrit (test code = 28.2 % 35.0-51.0 L hematocrit) MCV [Entitic volume] (test code = 96.9 fL 83-100 60922-3) mean corpuscular hemoglobin (test 30.9 pg 26.8-33.4 code = mean corpuscular hemoglobin) mean corpuscular HGB conc (test 31.9 g/dL 30-35 code = mean corpuscular HGB conc) red cell distribution width (test 14.5 % 12.0-14.0 H code = red cell distribution width) platelet count (test code = 286 K/uL 175-450 platelet count) mean platelet volume (test code = 9.2 fL 9.4-12.6 L mean platelet volume) Segmented neutrophils/100 78.9 % 44.7-82.4 leukocytes in Blood (test code = 96136-0) Immature granulocytes [#/volume] 0.0 K/uL 0.0-0.03 in Blood (test code = 02545-5) lymphocyte% (test code = 9.2 % 10.0-50.0 L lymphocyte%) mono % (test code = mono %) 9.4 % 3.9-13.4 eos % (test code = eos %) 1.8 % 0.0-6.4 Basophils/100 leukocytes in 0.3 % 0.2-1.2 Unspecified specimen (test code = 68677-3) Band form neutrophils [#/volume] 8.96 K/uL 1.78-5.38 H in Blood (test code = 26484-5) Lymphocytes [#/volume] in 1.0 K/uL 1.32-3.57 L Unspecified specimen by Automated count (test code = 51197-7) mono # (test code = mono #) 1.07 K/uL 0.30-0.82 H eos # (test code = eos #) 0.20 K/uL 0.04-0.54 basophil # (test code = basophil 0.03 K/uL 0.01-0.08 #) NRBC% (test code = NRBC%) 0 /100 WBC 0-0.2 NRBC# (test code = NRBC#) 0 K/uL [facility], method unspecified - [id number] 04:16:00NeutrophilsLymphocyteMonocytePlatelet EstimateMaPatient's Choice [facility] Comprehensive metabolic 2000 panel - Serum or [id number] 04:16:00 Test Item Value Reference Range Interpretation Comments glucose (test code = glucose) 121 mg/dL 82-115 H Urea nitrogen [Mass/volume] in 7 mg/dL 8-23 L Serum or Plasma (test code = 3094-0) osmolality calculated,serum (test 262 mOsm/kg 280-300 L code = osmolality calculated,serum) creatinine (test code = 0.8 mg/dL 0.70-1.20 creatinine) glomerular filtration rate (test >60.00 code = glomerular filtration rate) Urea nitrogen/Creatinine [Mass 8.8 12-20 L Ratio] in Serum or Plasma (test code = 3097-3) sodium level (test code = sodium 131 mmol/L 135-145 L level) Potassium [Moles/volume] in Body 4.4 mmol/L 3.5-5.2 fluid (test code = 2821-7) chloride level (test code = 98 mmol/L 98-108 chloride level) CO2 (test code = CO2) 25 mmol/L 21-32 anion gap (test code = anion gap) 12.4 mEq/L 12-20 calcium level (test code = 8.3 mg/dL 8.8-10.2 L calcium level) total protein (test code = total 5.3 g/dL 6.6-8.7 L protein) albumin (test code = albumin) 2.6 g/dL 3.5-5.2 L globulin (test code = globulin) 2.7 gm/dL A/G ratio (test code = A/G ratio) 1.0 >1.0 bilirubin,total (test code = 0.5 mg/dL 0.0-1.2 bilirubin,total) AST/SGOT (test code = AST/SGOT) 8 U/L 15-40 L Alanine aminotransferase 9 U/L 0-41 [Enzymatic activity/volume] in Serum or Plasma (test code = 1742-6) Alkaline phosphatase [Enzymatic 52 U/L 40-130 activity/volume] in Serum or Plasma (test code = 6768-6) [facility] I.cardiac [Mass/volume] in [id number] 10:30:00 Test Item Value Reference Range Interpretation Comments cardiac troponin I (test code = cardiac <0.30 0.0-0.5 troponin I) [facility] WesleyCreatine kinase.MB [Mass/volume] in Serum or Plasma 2020-01-25 10:30:00 Test Item Value Reference Range Interpretation Comments Creatine kinase.MB [Mass/volume] in 1.1 NG/mL 0.0-3.6 Serum or Plasma by Immunoassay (test code = 95818-6) [facility] WesleyTroponin I.cardiac [Mass/volume] in [id number] 10:30:00 Test Item Value Reference Range Interpretation Comments cardiac troponin I (test code = cardiac <0.30 0.0-0.5 troponin I) [facility] WesleyCreatine kinase.MB [Mass/volume] in Serum or Plasma 2020-01-25 10:30:00 Test Item Value Reference Range Interpretation Comments Creatine kinase.MB [Mass/volume] in 1.1 NG/mL 0.0-3.6 Serum or Plasma by Immunoassay (test code = 03023-8) [facility] W Auto Differential panel - [id number] 05:09:00 Test Item Value Reference Range Interpretation Comments white blood count (test code = 10.3 K/uL 4.0-12.3 white blood count) red blood count (test code = red 3.29 M/uL 3.80-5.80 L blood count) hemoglobin (test code = 10.0 g/dL 11.7-17.2 L hemoglobin) hematocrit (test code = 32.5 % 35.0-51.0 L hematocrit) MCV [Entitic volume] (test code = 98.8 fL 83-100 81435-4) mean corpuscular hemoglobin (test 30.4 pg 26.8-33.4 code = mean corpuscular hemoglobin) mean corpuscular HGB conc (test 30.8 g/dL 30-35 code = mean corpuscular HGB conc) red cell distribution width (test 14.6 % 12.0-14.0 H code = red cell distribution width) platelet count (test code = 281 K/uL 175-450 platelet count) mean platelet volume (test code = 9.4 fL 9.4-12.6 mean platelet volume) Segmented neutrophils/100 78.8 % 44.7-82.4 leukocytes in Blood (test code = 82136-1) Immature granulocytes [#/volume] 0.0 K/uL 0.0-0.03 in Blood (test code = 89834-7) lymphocyte% (test code = 10.0 % 10.0-50.0 lymphocyte%) mono % (test code = mono %) 10.5 % 3.9-13.4 eos % (test code = eos %) 0.2 % 0.0-6.4 Basophils/100 leukocytes in 0.2 % 0.2-1.2 Unspecified specimen (test code = 35860-5) Band form neutrophils [#/volume] 8.12 K/uL 1.78-5.38 H in Blood (test code = 33395-2) Lymphocytes [#/volume] in 1.0 K/uL 1.32-3.57 L Unspecified specimen by Automated count (test code = 70753-3) mono # (test code = mono #) 1.08 K/uL 0.30-0.82 H eos # (test code = eos #) 0.02 K/uL 0.04-0.54 L basophil # (test code = basophil 0.02 K/uL 0.01-0.08 #) NRBC% (test code = NRBC%) 0 /100 WBC 0-0.2 NRBC# (test code = NRBC#) 0 K/uL [facility] - [facility] or Plasma 2020-01-25 05:09:00 Test Item Value Reference Range Interpretation Comments Glucose [Mass/volume] in Serum or 125 mg/dL 82-115 H Plasma (test code = 2345-7) Urea nitrogen [Mass/volume] in 5 mg/dL 8-23 L Serum or Plasma (test code = 3094-0) osmolality calculated,serum (test 265 mOsm/kg 280-300 L code = osmolality calculated,serum) creatinine (test code = 0.9 mg/dL 0.70-1.20 creatinine) glomerular filtration rate (test >60.00 code = glomerular filtration rate) Urea nitrogen/Creatinine [Mass 5.6 12-20 L Ratio] in Serum or Plasma (test code = 3097-3) sodium level (test code = sodium 133 mmol/L 135-145 L level) potassium level (test code = 4.5 mmol/L 3.5-5.2 potassium level) chloride level (test code = 96 mmol/L 98-108 L chloride level) CO2 (test code = CO2) 26 mmol/L 21-32 anion gap (test code = anion gap) 15.5 mEq/L 12-20 calcium level (test code = 8.6 mg/dL 8.8-10.2 L calcium level) total protein (test code = total 5.6 g/dL 6.6-8.7 L protein) albumin (test code = albumin) 2.9 g/dL 3.5-5.2 L globulin (test code = globulin) 2.7 gm/dL A/G ratio (test code = A/G ratio) 1.1 >1.0 bilirubin,total (test code = 0.4 mg/dL 0.0-1.2 bilirubin,total) AST/SGOT (test code = AST/SGOT) 10 U/L 15-40 L Alanine aminotransferase 8 U/L 0-41 [Enzymatic activity/volume] in Serum or Plasma (test code = 1742-6) Alkaline phosphatase [Enzymatic 59 U/L 40-130 activity/volume] in Serum or Plasma (test code = 6768-6) [facility] W Auto Differential panel - [id number] 05:09:00 Test Item Value Reference Range Interpretation Comments white blood count (test code = 10.3 K/uL 4.0-12.3 white blood count) red blood count (test code = red 3.29 M/uL 3.80-5.80 L blood count) hemoglobin (test code = 10.0 g/dL 11.7-17.2 L hemoglobin) hematocrit (test code = 32.5 % 35.0-51.0 L hematocrit) MCV [Entitic volume] (test code = 98.8 fL 83-100 47535-1) mean corpuscular hemoglobin (test 30.4 pg 26.8-33.4 code = mean corpuscular hemoglobin) mean corpuscular HGB conc (test 30.8 g/dL 30-35 code = mean corpuscular HGB conc) red cell distribution width (test 14.6 % 12.0-14.0 H code = red cell distribution width) platelet count (test code = 281 K/uL 175-450 platelet count) mean platelet volume (test code = 9.4 fL 9.4-12.6 mean platelet volume) Segmented neutrophils/100 78.8 % 44.7-82.4 leukocytes in Blood (test code = 21473-8) Immature granulocytes [#/volume] 0.0 K/uL 0.0-0.03 in Blood (test code = 84080-6) lymphocyte% (test code = 10.0 % 10.0-50.0 lymphocyte%) mono % (test code = mono %) 10.5 % 3.9-13.4 eos % (test code = eos %) 0.2 % 0.0-6.4 Basophils/100 leukocytes in 0.2 % 0.2-1.2 Unspecified specimen (test code = 06633-6) Band form neutrophils [#/volume] 8.12 K/uL 1.78-5.38 H in Blood (test code = 16626-3) Lymphocytes [#/volume] in 1.0 K/uL 1.32-3.57 L Unspecified specimen by Automated count (test code = 82969-4) mono # (test code = mono #) 1.08 K/uL 0.30-0.82 H eos # (test code = eos #) 0.02 K/uL 0.04-0.54 L basophil # (test code = basophil 0.02 K/uL 0.01-0.08 #) NRBC% (test code = NRBC%) 0 /100 WBC 0-0.2 NRBC# (test code = NRBC#) 0 K/uL [facility] - [facility] or Plasma 2020-01-25 05:09:00 Test Item Value Reference Range Interpretation Comments Glucose [Mass/volume] in Serum or 125 mg/dL 82-115 H Plasma (test code = 2345-7) Urea nitrogen [Mass/volume] in 5 mg/dL 8-23 L Serum or Plasma (test code = 3094-0) osmolality calculated,serum (test 265 mOsm/kg 280-300 L code = osmolality calculated,serum) creatinine (test code = 0.9 mg/dL 0.70-1.20 creatinine) glomerular filtration rate (test >60.00 code = glomerular filtration rate) Urea nitrogen/Creatinine [Mass 5.6 12-20 L Ratio] in Serum or Plasma (test code = 3097-3) sodium level (test code = sodium 133 mmol/L 135-145 L level) potassium level (test code = 4.5 mmol/L 3.5-5.2 potassium level) chloride level (test code = 96 mmol/L 98-108 L chloride level) CO2 (test code = CO2) 26 mmol/L 21-32 anion gap (test code = anion gap) 15.5 mEq/L 12-20 calcium level (test code = 8.6 mg/dL 8.8-10.2 L calcium level) total protein (test code = total 5.6 g/dL 6.6-8.7 L protein) albumin (test code = albumin) 2.9 g/dL 3.5-5.2 L globulin (test code = globulin) 2.7 gm/dL A/G ratio (test code = A/G ratio) 1.1 >1.0 bilirubin,total (test code = 0.4 mg/dL 0.0-1.2 bilirubin,total) AST/SGOT (test code = AST/SGOT) 10 U/L 15-40 L Alanine aminotransferase 8 U/L 0-41 [Enzymatic activity/volume] in Serum or Plasma (test code = 1742-6) Alkaline phosphatase [Enzymatic 59 U/L 40-130 activity/volume] in Serum or Plasma (test code = 6768-6) [facility] [Enzymatic activity/volume] in Serum or [id number] 03:53:00 Test Item Value Reference Range Interpretation Comments creatine kinase (test code = creatine 155 U/L 20-200 kinase) [facility] WesleyCreat[facility] kinase.MB [Mass/volume] in Serum or Plasma 2020-01-25 03:53:00 Test Item Value Reference Range Interpretation Comments Creatine kinase.MB [Mass/volume] in 1.3 NG/mL 0.0-3.6 Serum or Plasma by Immunoassay (test code = 11311-1) [facility] [Enzymatic activity/volume] in Serum or [id number] 03:53:00 Test Item Value Reference Range Interpretation Comments creatine kinase (test code = creatine 155 U/L 20-200 kinase) [facility] kinase.MB [Mass/volume] in Serum or Plasma 2020-01-25 03:53:00 Test Item Value Reference Range Interpretation Comments Creatine kinase.MB [Mass/volume] in 1.3 NG/mL 0.0-3.6 Serum or Plasma by Immunoassay (test code = 18474-6) [facility] 2000 [facility] - Serum or Plasma 2020-01-24 04:34:00 Test Item Value Reference Range Interpretation Comments Glucose [Mass/volume] in Serum or 134 mg/dL 82-115 H Plasma (test code = 2345-7) Urea nitrogen [Mass/volume] in 7 mg/dL 8-23 L Serum or Plasma (test code = 3094-0) osmolality calculated,serum (test 265 mOsm/kg 280-300 L code = osmolality calculated,serum) creatinine (test code = 0.8 mg/dL 0.70-1.20 creatinine) glomerular filtration rate (test >60.00 code = glomerular filtration rate) Urea nitrogen/Creatinine [Mass 8.8 12-20 L Ratio] in Serum or Plasma (test code = 3097-3) sodium level (test code = sodium 132 mmol/L 135-145 L level) potassium level (test code = 4.6 mmol/L 3.5-5.2 potassium level) chloride level (test code = 97 mmol/L 98-108 L chloride level) CO2 (test code = CO2) 22 mmol/L 21-32 anion gap (test code = anion gap) 17.6 mEq/L 12-20 calcium level (test code = 8.2 mg/dL 8.8-10.2 L calcium level) total protein (test code = total 5.5 g/dL 6.6-8.7 L protein) albumin (test code = albumin) 3.0 g/dL 3.5-5.2 L globulin (test code = globulin) 2.5 gm/dL A/G ratio (test code = A/G ratio) 1.2 >1.0 bilirubin,total (test code = 0.4 mg/dL 0.0-1.2 bilirubin,total) AST/SGOT (test code = AST/SGOT) 12 U/L 15-40 L Alanine aminotransferase 9 U/L 0-41 [Enzymatic activity/volume] in Serum or Plasma (test code = 1742-6) Alkaline phosphatase [Enzymatic 64 U/L 40-130 activity/volume] in Serum or Plasma (test code = 6768-6) [facility] W Auto Differential panel - [id number] 04:34:00 Test Item Value Reference Range Interpretation Comments white blood count (test code = 9.3 K/uL 4.0-12.3 white blood count) red blood count (test code = red 3.33 M/uL 3.80-5.80 L blood count) hemoglobin (test code = 10.3 g/dL 11.7-17.2 L hemoglobin) hematocrit (test code = 32.5 % 35.0-51.0 L hematocrit) MCV [Entitic volume] (test code = 97.6 fL 83-100 83918-9) mean corpuscular hemoglobin (test 30.9 pg 26.8-33.4 code = mean corpuscular hemoglobin) mean corpuscular HGB conc (test 31.7 g/dL 30-35 code = mean corpuscular HGB conc) red cell distribution width (test 14.4 % 12.0-14.0 H code = red cell distribution width) platelet count (test code = 274 K/uL 175-450 platelet count) mean platelet volume (test code = 9.7 fL 9.4-12.6 mean platelet volume) Segmented neutrophils/100 79.4 % 44.7-82.4 leukocytes in Blood (test code = 00956-4) Immature granulocytes [#/volume] 0.0 K/uL 0.0-0.03 in Blood (test code = 24003-5) lymphocyte% (test code = 8.5 % 10.0-50.0 L lymphocyte%) mono % (test code = mono %) 11.8 % 3.9-13.4 eos % (test code = eos %) 0 % 0.0-6.4 Basophils/100 leukocytes in 0.1 % 0.2-1.2 L Unspecified specimen (test code = 41988-3) Band form neutrophils [#/volume] 7.40 K/uL 1.78-5.38 H in Blood (test code = 28023-8) Lymphocytes [#/volume] in 0.8 K/uL 1.32-3.57 L Unspecified specimen by Automated count (test code = 55262-1) mono # (test code = mono #) 1.10 K/uL 0.30-0.82 H eos # (test code = eos #) 0.00 K/uL 0.04-0.54 L basophil # (test code = basophil 0.01 K/uL 0.01-0.08 #) NRBC% (test code = NRBC%) 0 /100 WBC 0-0.2 NRBC# (test code = NRBC#) 0 K/uL [facility], method unspecified - [id number] 04:34:00NeutrophilsBandLymphocyteAtypical LymphMonocyteEosinophilBasophilPlatelet EstimatePlatelet MorphologyMataLawrence County HospitalComprehensive metabolic 2000 panel - Serum or [id number] 04:34:00 Test Item Value Reference Range Interpretation Comments Glucose [Mass/volume] in Serum or 134 mg/dL 82-115 H Plasma (test code = 2345-7) Urea nitrogen [Mass/volume] in 7 mg/dL 8-23 L Serum or Plasma (test code = 3094-0) osmolality calculated,serum (test 265 mOsm/kg 280-300 L code = osmolality calculated,serum) creatinine (test code = 0.8 mg/dL 0.70-1.20 creatinine) glomerular filtration rate (test >60.00 code = glomerular filtration rate) Urea nitrogen/Creatinine [Mass 8.8 12-20 L Ratio] in Serum or Plasma (test code = 3097-3) sodium level (test code = sodium 132 mmol/L 135-145 L level) potassium level (test code = 4.6 mmol/L 3.5-5.2 potassium level) chloride level (test code = 97 mmol/L 98-108 L chloride level) CO2 (test code = CO2) 22 mmol/L 21-32 anion gap (test code = anion gap) 17.6 mEq/L 12-20 calcium level (test code = 8.2 mg/dL 8.8-10.2 L calcium level) total protein (test code = total 5.5 g/dL 6.6-8.7 L protein) albumin (test code = albumin) 3.0 g/dL 3.5-5.2 L globulin (test code = globulin) 2.5 gm/dL A/G ratio (test code = A/G ratio) 1.2 >1.0 bilirubin,total (test code = 0.4 mg/dL 0.0-1.2 bilirubin,total) AST/SGOT (test code = AST/SGOT) 12 U/L 15-40 L Alanine aminotransferase 9 U/L 0-41 [Enzymatic activity/volume] in Serum or Plasma (test code = 1742-6) Alkaline phosphatase [Enzymatic 64 U/L 40-130 activity/volume] in Serum or Plasma (test code = 6768-6) [facility] W Auto Differential panel - [id number] 04:34:00 Test Item Value Reference Range Interpretation Comments white blood count (test code = 9.3 K/uL 4.0-12.3 white blood count) red blood count (test code = red 3.33 M/uL 3.80-5.80 L blood count) hemoglobin (test code = 10.3 g/dL 11.7-17.2 L hemoglobin) hematocrit (test code = 32.5 % 35.0-51.0 L hematocrit) MCV [Entitic volume] (test code = 97.6 fL 83-100 59189-0) mean corpuscular hemoglobin (test 30.9 pg 26.8-33.4 code = mean corpuscular hemoglobin) mean corpuscular HGB conc (test 31.7 g/dL 30-35 code = mean corpuscular HGB conc) red cell distribution width (test 14.4 % 12.0-14.0 H code = red cell distribution width) platelet count (test code = 274 K/uL 175-450 platelet count) mean platelet volume (test code = 9.7 fL 9.4-12.6 mean platelet volume) Segmented neutrophils/100 79.4 % 44.7-82.4 leukocytes in Blood (test code = 64081-2) Immature granulocytes [#/volume] 0.0 K/uL 0.0-0.03 in Blood (test code = 00745-7) lymphocyte% (test code = 8.5 % 10.0-50.0 L lymphocyte%) mono % (test code = mono %) 11.8 % 3.9-13.4 eos % (test code = eos %) 0 % 0.0-6.4 Basophils/100 leukocytes in 0.1 % 0.2-1.2 L Unspecified specimen (test code = 17931-1) Band form neutrophils [#/volume] 7.40 K/uL 1.78-5.38 H in Blood (test code = 56938-2) Lymphocytes [#/volume] in 0.8 K/uL 1.32-3.57 L Unspecified specimen by Automated count (test code = 49109-3) mono # (test code = mono #) 1.10 K/uL 0.30-0.82 H eos # (test code = eos #) 0.00 K/uL 0.04-0.54 L basophil # (test code = basophil 0.01 K/uL 0.01-0.08 #) NRBC% (test code = NRBC%) 0 /100 WBC 0-0.2 NRBC# (test code = NRBC#) 0 K/uL [facility], method unspecified - [id number] 04:34:00NeutrophilsBandLymphocyteAtypical LymphMonocyteEosinophilBasophilPlatelet EstimatePlatelet MorphologyMataTerri Ville [id number] 12:15:00 Test Item Value Reference Range Interpretation Comments Surgical pathology see separate pathology study (test code = report. 92261-8) [place] [id number] 12:15:00 Test Item Value Reference Range Interpretation Comments Surgical pathology see separate pathology study (test code = report. 72871-1) [facility]2020-08-05 10:34:00 Test Item Value Reference Range Interpretation Comments cea (test code = cea) 4.42 0-4.7 [facility]2020-08-05 10:34:00 Test Item Value Reference Range Interpretation Comments cea (test code = cea) 4.42 0[facility]4.7 [facility] [id number] 08:03:00 Test Item Value Reference Range Interpretation Comments Surgical pathology see separate pathology study (test code = report. 83382-5) [facility] [id number] 08:03:00 Test Item Value Reference Range Interpretation Comments Surgical pathology see separate pathology study (test code = report. 84904-1) [facility] Auto Differential panel - [id number] 06:40:00 Test Item Value Reference Range Interpretation Comments white blood count (test code = 7.4 K/uL 4.0-12.3 white blood count) red blood count (test code = red 4.03 M/uL 3.80-5.80 blood count) hemoglobin (test code = 12.4 g/dL 11.7-17.2 hemoglobin) hematocrit (test code = 39.5 % 35.0-51.0 hematocrit) MCV [Entitic volume] (test code = 98.0 fL 83-100 79747-2) mean corpuscular hemoglobin (test 30.8 pg 26.8-33.4 code = mean corpuscular hemoglobin) mean corpuscular HGB conc (test 31.4 g/dL 30-35 code = mean corpuscular HGB conc) red cell distribution width (test 14.5 % 12.0-14.0 H code = red cell distribution width) platelet count (test code = 292 K/uL 175-450 platelet count) mean platelet volume (test code = 9.1 fL 9.4-12.6 L mean platelet volume) Segmented neutrophils/100 64.9 % 44.7-82.4 leukocytes in Blood (test code = 83953-9) Immature granulocytes [#/volume] 0.0 K/uL 0.0-0.03 in Blood (test code = 31951-7) lymphocyte% (test code = 23.3 % 10.0-50.0 lymphocyte%) mono % (test code = mono %) 8.0 % 3.9-13.4 eos % (test code = eos %) 2.8 % 0.0-6.4 Basophils/100 leukocytes in 0.7 % 0.2-1.2 Unspecified specimen (test code = 59862-6) Band form neutrophils [#/volume] 4.79 K/uL 1.78-5.38 in Blood (test code = 63116-2) Lymphocytes [#/volume] in 1.7 K/uL 1.32-3.57 Unspecified specimen by Automated count (test code = 95851-9) mono # (test code = mono #) 0.59 K/uL 0.30-0.82 eos # (test code = eos #) 0.21 K/uL 0.04-0.54 basophil # (test code = basophil 0.05 K/uL 0.01-0.08 #) NRBC% (test code = NRBC%) 0 /100 WBC 0-0.2 NRBC# (test code = NRBC#) 0 K/uL [facility], method unspecified - [id number] 06:40:00NeutrophilsBandLymphocyteMonocyteMetamyelocytePlatelet EstimateMataLawrence County HospitalComprehensive metabolic 2000 panel - Serum or [id number] 06:40:00 Test Item Value Reference Range Interpretation Comments Glucose [Mass/volume] in Serum or 98 mg/dL 82-115 Plasma (test code = 2345-7) Urea nitrogen [Mass/volume] in 11 mg/dL 8-23 Serum or Plasma (test code = 3094-0) osmolality calculated,serum (test 277 mOsm/kg 280-300 L code = osmolality calculated,serum) creatinine (test code = 0.9 mg/dL 0.70-1.20 creatinine) glomerular filtration rate (test >60.00 code = glomerular filtration rate) Urea nitrogen/Creatinine [Mass 12.2 12-20 Ratio] in Serum or Plasma (test code = 3097-3) sodium level (test code = sodium 139 mmol/L 135-145 level) potassium level (test code = 3.7 mmol/L 3.5-5.2 potassium level) chloride level (test code = 99 mmol/L 98-108 chloride level) CO2 (test code = CO2) 29 mmol/L 21-32 anion gap (test code = anion gap) 14.7 mEq/L 12-20 calcium level (test code = 9.0 mg/dL 8.8-10.2 calcium level) total protein (test code = total 7.0 g/dL 6.6-8.7 protein) albumin (test code = albumin) 4.1 g/dL 3.5-5.2 globulin (test code = globulin) 2.9 gm/dL A/G ratio (test code = A/G ratio) 1.4 >1.0 bilirubin,total (test code = 0.4 mg/dL 0.0-1.2 bilirubin,total) AST/SGOT (test code = AST/SGOT) 16 U/L 15-40 Alanine aminotransferase 11 U/L 0-41 [Enzymatic activity/volume] in Serum or Plasma (test code = 1742-6) Alkaline phosphatase [Enzymatic 83 U/L 40-130 activity/volume] in Serum or Plasma (test code = 6768-6) [facility] W Auto Differential panel - [id number] 06:40:00 Test Item Value Reference Range Interpretation Comments white blood count (test code = 7.4 K/uL 4.0-12.3 white blood count) red blood count (test code = red 4.03 M/uL 3.80-5.80 blood count) hemoglobin (test code = 12.4 g/dL 11.7-17.2 hemoglobin) hematocrit (test code = 39.5 % 35.0-51.0 hematocrit) MCV [Entitic volume] (test code = 98.0 fL 83-100 15779-4) mean corpuscular hemoglobin (test 30.8 pg 26.8-33.4 code = mean corpuscular hemoglobin) mean corpuscular HGB conc (test 31.4 g/dL 30-35 code = mean corpuscular HGB conc) red cell distribution width (test 14.5 % 12.0-14.0 H code = red cell distribution width) platelet count (test code = 292 K/uL 175-450 platelet count) mean platelet volume (test code = 9.1 fL 9.4-12.6 L mean platelet volume) Segmented neutrophils/100 64.9 % 44.7-82.4 leukocytes in Blood (test code = 90458-0) Immature granulocytes [#/volume] 0.0 K/uL 0.0-0.03 in Blood (test code = 06678-9) lymphocyte% (test code = 23.3 % 10.0-50.0 lymphocyte%) mono % (test code = mono %) 8.0 % 3.9-13.4 eos % (test code = eos %) 2.8 % 0.0-6.4 Basophils/100 leukocytes in 0.7 % 0.2-1.2 Unspecified specimen (test code = 06549-9) Band form neutrophils [#/volume] 4.79 K/uL 1.78-5.38 in Blood (test code = 05517-5) Lymphocytes [#/volume] in 1.7 K/uL 1.32-3.57 Unspecified specimen by Automated count (test code = 52143-0) mono # (test code = mono #) 0.59 K/uL 0.30-0.82 eos # (test code = eos #) 0.21 K/uL 0.04-0.54 basophil # (test code = basophil 0.05 K/uL 0.01-0.08 #) NRBC% (test code = NRBC%) 0 /100 WBC 0-0.2 NRBC# (test code = NRBC#) 0 K/uL [facility] GroupDifferent[facility], method unspecified - [id number] 06:40:00NeutrophilsBandLymphocyteMonocyteMetamyelocytePlatelet EstimateMerit Health WesleyComprehensive metabolic 2000 panel - Serum or [id number] 06:40:00 Test Item Value Reference Range Interpretation Comments Glucose [Mass/volume] in Serum or 98 mg/dL 82-115 Plasma (test code = 2345-7) Urea nitrogen [Mass/volume] in 11 mg/dL 8-23 Serum or Plasma (test code = 3094-0) osmolality calculated,serum (test 277 mOsm/kg 280-300 L code = osmolality calculated,serum) creatinine (test code = 0.9 mg/dL 0.70-1.20 creatinine) glomerular filtration rate (test >60.00 code = glomerular filtration rate) Urea nitrogen/Creatinine [Mass 12.2 12-20 Ratio] in Serum or Plasma (test code = 3097-3) sodium level (test code = sodium 139 mmol/L 135-145 level) potassium level (test code = 3.7 mmol/L 3.5-5.2 potassium level) chloride level (test code = 99 mmol/L 98-108 chloride level) CO2 (test code = CO2) 29 mmol/L 21-32 anion gap (test code = anion gap) 14.7 mEq/L 12-20 calcium level (test code = 9.0 mg/dL 8.8-10.2 calcium level) total protein (test code = total 7.0 g/dL 6.6-8.7 protein) albumin (test code = albumin) 4.1 g/dL 3.5-5.2 globulin (test code = globulin) 2.9 gm/dL A/G ratio (test code = A/G ratio) 1.4 >1.0 bilirubin,total (test code = 0.4 mg/dL 0.0-1.2 bilirubin,total) AST/SGOT (test code = AST/SGOT) 16 U/L 15-40 Alanine aminotransferase 11 U/L 0-41 [Enzymatic activity/volume] in Serum or Plasma (test code = 1742-6) Alkaline phosphatase [Enzymatic 83 U/L 40-130 activity/volume] in Serum or Plasma (test code = 6768-6) [facility]
[2022-10-07 11:20] LABS: Absolute Lymphocytes (CBC) 1.4 K/uL (0.7-4.9); Hematocrit 39.5 % (39.6-49.0); Lymphocytes % 6.3 % (15.3-44.8); MCV 93.6 fL (80-100); MPV 8.9 fL (7.6-11.3); RBC Red Blood Cell Count 4.23 M/uL (4.33-5.43)
[2022-10-07 11:44] LABS: Albumin 1.5 g/dL (3.4-5.0); Bilirubin Direct 6.1 mg/dL (0-0.2); Bilirubin Total 6.7 mg/dL (0.2-1.0); Potassium 4.6 mEq/L (3.5-5.1); Protein, Total 6.4 g/dL (6.4-8.2); Troponin High Sensitivity 3.9 pg/mL (<58.9)
--- NOTE | 2022-10-07 12:11 | RAD REPORT ---
EXAM DESCRIPTION: Julia Single View10/07/2022 11:57 am CLINICAL HISTORY: generalized weaknes COMPARISON: No comparisons TECHNIQUE: Portable AP view of the chest. FINDINGS: Patchy airspace opacification throughout the left mid to lower lung. Associated small effu eriberto. No pneumothorax. The cardiomediastinal contours are unremarkable. 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 IMPRESSION: Left lung patchy airspace opacification with small effusion. Findings raise concern for pneumonia. .
--- NOTE | 2022-10-07 12:20 | EDPHYS ---
Physician Documentation [facility] Name: Chris Calvo Age: 72 yrs Sex: Male : 1950 Arrival Date: 10/07/2022 Time: 10:10 Bed 6 Private MD: ED Physician Hernandez Melvin HPI: 10/07 11:08 This 72 yrs old Male presents to ER via Wheelchair with complaints of Weakness. ms3 11:08 72-year-old male with past medical history of colon cancer, depression, hypertension ms3 presents for generalized weakness that has been ongoing for 1 month. Patient states he has been unable to walk for 1 month and has had an increase in generalized weakness. Patient states he is seeing Dr. Griffin and was referred to the emergency department for his weakness by Dr. Griffin. Patient denies nausea, vomiting, chest pain, shortness of breath. Historical: - Allergies: 10:28 No Known Allergies; ap3 - PMHx: 10:28 colon cancer; Depressive disorder; Hypertensive disorder; ap3 - PSHx: 10:28 colon cancer removal 2020; ap3 - Immunization history:: Client reports having NOT received the Covid vaccine. - Social history:: Smoking status: Patient reports use of chewing tobacco. ROS: 11:08 Neck: Negative for injury, pain, and swelling, Cardiovascular: Negative for chest pain, ms3 and palpitations. 11:08 Abdomen/GI: Negative for abdominal pain, nausea, vomiting, diarrhea, and constipation, MS/Extremity: Negative for injury and deformity, Neuro: Negative for headache, weakness, numbness, tingling. 11:08 Constitutional: Positive for Generalized weakness. 11:08 Skin: Positive for jaundice. Exam: 11:08 Constitutional: This is a well developed, well nourished patient who is awake, alert, ms3 and in no acute distress. Head/Face: Normocephalic, atraumatic. Neck: Trachea midline, no cervical lymphadenopathy. Supple, full range of motion without nuchal rigidity, or vertebral point tenderness. No Meningismus. Chest/axilla: Normal chest wall appearance and motion. Nontender with no deformity. Cardiovascular: Regular rate and rhythm with a normal S1 and S2. No gallops, murmurs, or rubs. Normal PMI, no JVD. No pulse deficits. Respiratory: Lungs have equal breath sounds bilaterally, clear to auscultation and percussion. No rales, rhonchi or wheezes noted. No increased work of breathing, no retractions or nasal flaring. 11:08 Abdomen/GI: Inspection: distension, that is moderate, Bowel sounds: normal, Palpation: mild abdominal tenderness, in the right upper quadrant. 11:08 Skin: Appearance: Color: jaundiced. 11:14 ECG was reviewed by the Attending Physician. ms3 Vital Signs: 10:24 BP 105 / 68; Pulse 116; Resp 16; Temp 97.5(O); Pulse Ox 94% ; Weight 72.57 kg; ap3 11:04 BP 122 / 76; Pulse 102; Resp 18; Pulse Ox 95% on R/A; ld1 11:50 BP 113 / 74; Pulse 116; Resp 18; Pulse Ox 94% on R/A; ld1 12:17 BP 118 / 76; Pulse 104; Resp 18; Pulse Ox 94% on R/A; ld1 MDM: 10:31 Patient medically screened. ms3 11:08 Data reviewed: vital signs, nurses notes. 3 10/07 10:31 Order name: Basic Metabolic Panel; Complete Time: 12:14 3 10/07 10:31 Order name: CBC with Diff; Complete Time: 15:27 ms3 10/07 10:31 Order name: LFT's; Complete Time: 12:14 ms3 10/07 10:31 Order name: Troponin HS; Complete Time: 12:14 ms3 10/07 10:31 Order name: Urinalysis w/ reflexes 10/07 10:54 Order name: PT-INR; Complete Time: 15:27 ms3 10/07 12:15 Order name: Blood Culture Adult (2) 10/07 12:15 Order name: CMP; Complete Time: 15:27 ms3 10/07 12:15 Order name: Lactate w/ 2H reflex if indic.; Complete Time: 15:27 ms3 10/07 12:15 Order name: Ptt, Activated; Complete Time: 15:27 ms3 10/07 12:30 Order name: Glucose, Ancillary Testing; Complete Time: 15:27 EDMS 10/07 12:32 Order name: Glucose, Ancillary Testing EDMS 10/07 13:01 Order name: CBC Smear Scan; Complete Time: 15:27 EDMS 10/07 15:10 Order name: Phosphorus; Complete Time: 15:27 EDMS 10/07 15:10 Order name: Magnesium; Complete Time: 15:27 EDMS 10/07 10:31 Order name: CXR XRAY; Complete Time: 12:14 ms3 10/07 15:04 Order name: CT; Complete Time: 15:27 EDMS 10/07 15:07 Order name: CT; Complete Time: 15:27 EDMS 10/07 10:31 Order name: EKG; Complete Time: 10:32 ms3 10/07 10:31 Order name: Cardiac monitoring; Complete Time: 11:04 ms3 10/07 10:31 Order name: EKG - Nurse/Tech; Complete Time: 11:04 ms3 10/07 10:31 Order name: IV Saline Lock; Complete Time: 11:04 ms3 10/07 10:31 Order name: Labs collected and sent; Complete Time: 11:04 ms3 10/07 10:31 Order name: O2 Per Protocol; Complete Time: 10:44 ms3 10/07 10:31 Order name: O2 Sat Monitoring; Complete Time: 10:44 ms3 10/07 12:15 Order name: Accucheck; Complete Time: 13:01 ms3 10/07 12:15 Order name: IV Saline Lock - Large Bore; Complete Time: 12:17 ms3 10/07 12:15 Order name: Vital Signs; Complete Time: 12:17 ms3 EC:14 Rate is 102 beats/min. Rhythm is regular. QRS [place] is Normal. ME interval is normal. ms3 QRS interval is normal. Clinical impression: NSR w/ Non-specific ST/T Changes. Interpreted by me. Reviewed by me. Administered Medications: 14:18 Drug: Rocephin IV 1 grams Route: IV; Rate: calculated rate; Site: right antecubital; ld1 14:24 Drug: AZITHromycin IVPB 500 mg Route: IVPB; Infused Over: 1 hrs; Site: left antecubital;ld1 Disposition Summary: 10/07/22 12:19 Hospitalization Ordered Hospitalization Status: Inpatient Admission ms3 Provider: Reddy Shelby ms3 Location: Telemetry/MedSur (Inpatient) ms3 Condition: Stable ms3 Problem: new ms3 Symptoms: are unchanged ms3 Bed/Room Type: Standard ms3 Room Assignment: 413(10/07/22 15:12) [email or web address] Diagnosis - Other pneumonia, unspecified organism ms3 - Liver cancer ms3 - Muscle weakness (generalized) ms3 - Unspecified jaundice ms3 - Severe sepsis without septic shock ms3 Forms: - Medication Reconciliation Form ms3 - SBAR form ms3 Critical care time excluding procedures: 15:15 Critical care time: Bedside Care: 25 minutes, Consultation: 10 minutes, Family ms3 Intervention: 10 minutes. Total time: 45 minutes Signatures: Dispatcher [employer] Keren Whitney, RN RN dw Sharon George RN RN ap3 Luz Morgan1 Hernandez Melvin DO DO ms3 Melany Melvin RN RN ld1 Corrections: (The following items were deleted from the chart) 15:12 12:19 ms3 dw 15:12 15:12 413 kj1
--- NOTE | 2022-10-07 12:20 | ER ---
Nurse's Notes [facility] Name: Chris Calvo Age: 72 yrs Sex: Male : 1950 Arrival Date: 10/07/2022 Time: 10:10 Bed 6 Private MD: Diagnosis: Other pneumonia, unspecified organism;Liver cancer;Muscle weakness (generalized);Unspecified jaundice;Severe sepsis without septic shock Presentation: 10/07 10:24 Chief complaint: Patient states: he has been weak, and unable to walk for approx one ap3 month. patient states that Dr. Griffin instructed them to come to the ED for further evaluation. Coronavirus screen: At this time, the client does not indicate any symptoms associated with coronavirus-19. Ebola Screen: No symptoms or risks identified at this time. Initial Sepsis Screen: Does the patient meet any 2 criteria? HR > 90 bpm. Does the patient have a suspected source of infection? No. Patient's initial sepsis screen is negative. Risk Assessment: Do you want to hurt yourself or someone else? Patient reports no desire to harm self or others. Onset of symptoms is unknown. 10:24 Method Of Arrival: Wheelchair ap3 10:24 Acuity: BUDDY 3 ap3 Triage Assessment: 10:30 General: Appears slender, Behavior is calm, cooperative. Pain: Complains of pain in ap3 abdomen Pain began gradually. Neuro: Level of Consciousness is awake, alert, obeys commands, Oriented to person, place, time, situation, Weakness Gait is unsteady, Reports weakness. Cardiovascular: Patient's skin is warm and dry. Respiratory: Airway is patent Respiratory effort is even, unlabored, Respiratory pattern is regular, symmetrical. GI: Reports lower abdominal pain, upper abdominal pain. Historical: - Allergies: 10:28 No Known Allergies; ap3 - PMHx: 10:28 colon cancer; Depressive disorder; Hypertensive disorder; ap3 - PSHx: 10:28 colon cancer removal 2020; ap3 - Immunization history:: Client reports having NOT received the Covid vaccine. - Social history:: Smoking status: Patient reports use of chewing tobacco. Screenin:31 Abuse screen: Denies threats or abuse. Nutritional screening: No deficits noted. ap3 Tuberculosis screening: No symptoms or risk factors identified. 11:04 [facility] ED Fall Risk Assessment (Adult) History of falling in the last 3 months, ld1 including since admission No falls in past 3 months (0 pts). Assessment: 11:04 General: Appears in no apparent distress. comfortable, Behavior is calm, cooperative, ld1 appropriate for age. Pain: Complains of pain in abdomen Pain does not radiate. Pain currently is 8 out of 10 on a pain scale. Neuro: Level of Consciousness is awake, alert, obeys commands, Oriented to person, place, time, situation. Cardiovascular: Capillary refill < 3 seconds Patient's skin is warm and dry. Respiratory: Airway is patent Respiratory effort is even, unlabored. GI: Abdomen is flat, non-distended. GI: Reports nausea. : No signs and/or symptoms were reported regarding the genitourinary system. EENT: No signs and/or symptoms were reported regarding the EENT system. Derm: No signs and/or symptoms reported regarding the dermatologic system. Musculoskeletal: No signs and/or symptoms reported regarding the musculoskeletal system. 15:17 Reassessment: attempted to call report - nurses were not ready. Will continue to try to ld1 call report. Vital Signs: 10:24 BP 105 / 68; Pulse 116; Resp 16; Temp 97.5(O); Pulse Ox 94% ; Weight 72.57 kg; ap3 11:04 BP 122 / 76; Pulse 102; Resp 18; Pulse Ox 95% on R/A; ld1 11:50 BP 113 / 74; Pulse 116; Resp 18; Pulse Ox 94% on R/A; ld1 12:17 BP 118 / 76; Pulse 104; Resp 18; Pulse Ox 94% on R/A; ld1 ED Course: 10:13 Patient arrived in ED. mr 10:21 Hernandez Melvin DO is Attending Physician. ms3 10:28 Triage completed. ap3 10:31 Arm band placed on right wrist. ap3 11:04 Melany Melvin, RN is Primary Nurse. ld1 11:04 Patient has correct armband on for positive identification. Placed in gown. Bed in low ld1 position. Call light in reach. Side rails up X2. desk monitor on. Pulse ox on. NIBP on. Door closed. Noise minimized. Warm blanket given. 11:04 Inserted saline lock: 20 gauge in right antecubital area, using aseptic technique. ld1 Blood collected. 11:04 No provider procedures requiring assistance completed. ld1 11:59 CXR XRAY In Process Unspecified. EDMS 12:18 Reddy Shelby MD is Hospitalizing Provider. ms3 14:15 Blood Culture Adult (2) Sent. ld1 14:24 Inserted saline lock: 20 gauge in left antecubital area, using aseptic technique. Blood ld1 collected. 15:50 Patient admitted, IV remains in place. ld1 16:10 Repositioned patient. Cleaned of incontinence. Linen changed. ld1 Administered Medications: 14:18 Drug: Rocephin IV 1 grams Route: IV; Rate: calculated rate; Site: right antecubital; ld1 14:24 Drug: AZITHromycin IVPB 500 mg Route: IVPB; Infused Over: 1 hrs; Site: left antecubital;ld1 Medication: 11:04 VIS not applicable for this client. ld1 Outcome: 12:19 Decision to Hospitalize by Provider. ms3 15:50 Admitted to Med/surg accompanied by tech, via stretcher, room 413, Report called to ld1 JARVIS Taylor 15:50 Condition: stable 15:50 Instructed on the need for admit. 16:20 Patient left the ED. ld1 Signatures: Dispatcher [employer] EDMA Georgie Larkin Amanda, RN RN Hernandez Woodall, DO ms3 Melany Melvin, JARVIS RN ld1
[2022-10-07 13:02] LABS: Anisocytosis 1+; Blood Morphology Comment NOTED (NOT SEEN); Platelet Estimate ADEQ; White Blood Cell Scan OK (OK)
[2022-10-07 13:09] LABS: Protime INR 1.25
[2022-10-07 13:41] LABS: Albumin 1.4 g/dL (3.4-5.0); Bilirubin Total 6.2 mg/dL (0.2-1.0); Potassium 4.4 mEq/L (3.5-5.1)
[2022-10-07] MEDS ORDERED: ACETAMINOPHEN 325 MG TABLET PO PRN (14:06)
[2022-10-07] MEDS ORDERED: ONDANSETRON 4 MG/2 ML VIAL IV PRN (14:10)
[2022-10-07] MEDS ORDERED: CEFTRIAXONE 1000 MG/VIAL ONE (14:22)
[2022-10-07] MEDS ORDERED: AZITHROMYCIN 500 MG INJ IVPB ONE (14:22)
[2022-10-07] MEDS ORDERED: NA CHLORIDE 0.9% 250 ML ONE (14:22)
--- NOTE | 2022-10-07 14:29 | P.HP ---
Certification for Inpatient Patient admitted to: Inpatient With expected LOS: >2 Midnights Patient will require the following post-hospital care: None Practitioner: I am a practitioner with admitting privileges, knowledge of patient current condition, hospital course, and medical plan of care. Services: Services provided to patient in accordance with Admission requirements found in Title 42 Section 412.3 of the Code of Federal Regulations Patient History Date of Service: 10/07/22 Reason for admission: Generalized weakness, sob History of Present Illness: Patient is a 72-year-old male with a past medical history significant for depression, hypertension, colon cancer status post resection, COPD who presents with complaint of generalized weakness has been ongoing for quite some time now. Patient is a poor historian and unable to provide accurate history. Patient follows up with an outpatient oncologist. Patient was recently diagnosed with liver cancer and currently not on treatment. Patient reported that he had colon cancer diagnosed in 2020 and had a resection. Patient reported that he has not followed up with any oncologist since then until recently. Patient reported associated signs and symptoms of fatigue, weakness, dizziness, cough, nausea, vomiting, Sob, diarrhea, abdominal distention, abdominal pain, chills, bilater al lower extremity edema and generalized malaise. Patient denies any other signs and symptoms. Symptoms are aggravated or relieved by nothing. Patient reported that he followed up with his oncologist who ordered an MRI abdomen at another hospital. Patient went to her oncologist office today to check results and was send to the ER due to patient's clinical condition. Of note, patient reported that he was unable to walk this morning. Allergies No Known Allergies Allergy (Unverified 10/07/22 14:20) - Past Medical/Surgical History -: Liver Cancer -: Hx of Colon CA s/p Resection -: HTN -: depression -: COPD -: Colon reserction in 2020 - Family History Father -: Heart disease Mother -: Heart disease - Social History Smoking Status: Former smoker Alcohol use: No CD- Drugs: No Caffeine use: No Place of Residence: Home Review of Systems General: Chills, Weakness, Malaise, Other (fatigue) Eyes: Unremarkable ENT: Unremarkable Respiratory: Cough, Shortness of Breath Cardiovascular: Unremarkable Gastrointestinal: Nausea, Vomiting, Abdominal Pain, Diarrhea, Distention Genitourinary: Unremarkable Musculoskeletal: Pedal edema Integumentary: Other (Pressure ulcer) Neurological: Weakness, Other (Dizziness) Lymphatics: Unremarkable Physical Examination - Physical Exam General: Alert, Oriented x3, Cooperative, Mild distress HEENT: Atraumatic, PERRLA, EOMI, Sclerae nonicteric, Scleral icterus Neck: Supple, 2+ carotid pulse no bruit, No LAD, Without JVD or thyroid abnormality Respiratory: Diminished Cardiovascular: Regular rate/rhythm, Normal S1 S2, Edema Capillary refill: <2 Seconds Gastrointestinal: Normal bowel sounds, Distended, Tenderness Musculoskeletal: No clubbing, No contractures, Swelling Integumentary: No rashes, Skin breakdown, Pressure ulcer Neurological: Normal speech, Normal tone, Normal affect Lymphatics: No axilla or inguinal lymphadenopathy - Studies Laboratory Data (last 24 hrs) 10/07/22 13:03: APTT 34.3 10/07/22 13:03: Sodium 132 L, Potassium 4.4, BUN 23 H, Creatinine 0.91, Glucose 103, Total Bilirubin 6.2 H, AST 198 H, ALT 62 H, Alkaline Phosphatase 919 H 10/07/22 11:03: PT 14.7 H, INR 1.25 10/07/22 11:03: WBC 21.40 H, Hgb 12.7 L, Hct 39.5 L, Plt Count 196 10/07/22 11:03: Sodium 134 L, Potassium 4.6, BUN 22 H, Creatinine 0.95, Glucose 118 H, Total Bilirubin 6.7 H, AST 212 H, ALT 64 H, Alkaline Phosphatase 978 H Assessment and Plan - Plan --Acute on chronic COPD exacerbation. CT imaging does not indicate any evidence of pneumonia. Continue neb treatment with albuterol\Atrovent. Continue O2 therapy. --Liver cancer. CT abdominal imaging indicates Significantly enlarged liver which appears to contain a 6 cm mass. Patient has a recent diagnosis of liver cancer. Patient follows up with an outpatient oncologist. Continue supportive care. --Hypertension. Stable. Continue home medication --History of colon cancer. Status post colon resection in 2020. Patient follows up with an outpatient oncologist. Continue supportive care. --Sepsis POA. Source of infection not noted. Blood cultures pending. Continue antibiotics. -- Depression. Continue home medication. --Stage II decubitus ulcer. Wound care consult initiated. Continue supportive care. --Generalized weakness. Likely multifactorial--secondary to liver cancer\ chronic disease processes. Continue supportive care. --Elevated LFTs. Secondary to liver cancer. Total bilirubin elevated. We will continue to monitor liver functions. -- Nausea and vomiting. Antiemetics on board. -- Diarrhea. Patient denies any episode of diarrhea today. Continue supportive care. --DVT prophylaxis with Lovenox subQ -- Discharge planning. Patient is a DNR. Social service consulted for placement-- possibly hospice. Discharge Plan: Home Plan to discharge in: Greater than 2 days - Advance Directives Does patient have a Living Will: No Does patient have a Durable POA for Healthcare: No - Code Status/Comfort Care Code Status Assessed: Yes Code Status: Do Not Attempt Resuscitat Physician Review: Patient Assessed, Agree with Above Assessment and Plan Critical Care: No
--- NOTE | 2022-10-07 15:03 | RAD REPORT ---
EXAM DESCRIPTION: CT - Thorax Wo Con CLINICAL HISTORY: Chest pain Suspected Pneumonia COMPARISON: 10/07/2022 FINDINGS: Advanced emphysematous changes are present with reduced left lung volume. Multiple nodules are present in both lungs raising concern for metastatic disease. Trace left pleural effusion. No pl eural thickening or pleural effusion. No pneumothorax. No axillary, mediastinal or hilar adenopathy. No concerning bony finding. Sternotomy wires. All CT scans are performed using dose optimization technique as appropriate and may include automated exposure control or mA/KV adjustment according to patient size. IMPRESSION: Severe emphysematous changes.Multiple noncalcified nodules randomly distributed bilatera lly in the lungs likely metastatic in origin.
--- NOTE | 2022-10-07 15:07 | RAD REPORT ---
EXAM DESCRIPTION: CT - Abdomen Wo Contrast CLINICAL HISTORY: abdominal pain Abdominal pain COMPARISON: <Comparisons> TECHNIQUE All CT scans are performed using dose optimization technique as appropriate and may includ e automated exposure control or mA/KV adjustment according to patient size. FINDINGS: Advanced emphysema in the lung bases. Multiple noncalcified nodules in the lung bases like ly metastatic in origin. The liver is significantly enlarged and contains a masslike lesion in the right lobe measuring about 6 cm. It is difficult to assess further due to lack of IV contrast. Spleen, pancreas, adrenal glands and right kidney are grossly normal. A benign left renal cyst is see n. IMPRESSION: Significantly enlarged liver which appears to contain a 6 cm mass. Recommend MRI liver p rotocol with gadolinium for further assessment.
[2022-10-07 15:09] LABS: Magnesium 2.4 mg/dL (1.6-2.4); Phosphorus 3.4 mg/dL (2.5-4.9)
[2022-10-07 16:35] VITALS: BMI 25.0
[2022-10-07] MEDS: IPRATROPIUM BROM 0.5MG/2.5ML NEB SCH (19:20)
[2022-10-07] MEDS: ALBUTEROL 2.5 MG/3 ML NEB SOL NEB SCH (19:20)
[2022-10-08] MEDS: IPRATROPIUM BROM 0.5MG/2.5ML NEB SCH ×4 (02:00→19:20)
[2022-10-08] MEDS: ALBUTEROL 2.5 MG/3 ML NEB SOL NEB SCH ×4 (02:00→19:20)
[2022-10-08 05:27] LABS: Absolute Lymphocytes (CBC) 1.1 K/uL (0.7-4.9); Hematocrit 35.7 % (39.6-49.0); Lymphocytes % 6.9 % (15.3-44.8); MCV 93.1 fL (80-100); RBC Red Blood Cell Count 3.84 M/uL (4.33-5.43)
[2022-10-08 05:39] LABS: Protime INR 1.23
[2022-10-08 05:56] LABS: Albumin 1.2 g/dL (3.4-5.0); Bilirubin Total 5.1 mg/dL (0.2-1.0); Potassium 4.2 mEq/L (3.5-5.1); Protein, Total 5.5 g/dL (6.4-8.2)
--- NOTE | 2022-10-08 07:33 | P.PN ---
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 Elevated LFTs Hypertension Depression Stage II decubitus ulcer Acute on chronic COPD exacerbation CT imaging does not indicate any evidence of pneumonia; noted pulm nodules /metastatic disease Continue neb treatment with albuterol / Atrovent Continue O2 therapy denies prior admissions for copd, occasionally uses inhaler Sepsis unlikely no obvious source of infection SIRS criteria can be secondaryto copd exacerbation and worsening metastatic cancer (leukocytosis) Blood cultures without growth rocephin given in ED, continue empirically for now Stage IV, 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 Griffin, reviewed OSH MRI - not candidate for treatment; recommends hospice patient with profound weakness, worsening over last month s/p colon resection in 2020 Elevated LFTs Secondary to metastatic cancer / large lesion noted on MRI/CT Total bilirubin elevated continue to monitor liver function - mild improvement Hypertension - Stable. Continue home medication Depression - Continue home medication Stage II decubitus ulcer - Wound care consult initiated Nausea/Vomiting/Diarrhea Continue Antiemetics Code: DNR Dispo: Social service consulted for placement - hospice
[2022-10-08] MEDS: CEFTRIAXONE 1,000 MG in NA CHLORIDE 0.9% 50 ML IVPB SCH (08:33)
[2022-10-08] MEDS: ASPIRIN 81 MG CHEWABLE TABLET PO SCH (08:34)
[2022-10-08] MEDS ORDERED: ENOXAPARIN 40 MG/0.4 ML SQ SCH (09:00)
--- NOTE | 2022-10-08 16:48 | EKG ---
Test Date: 2022-10-07 Test Time: 10:52:08 Housekeeping Aid: Gillian SANDERS MEASUREMENT RESULTS: Intervals: Rate: 102 [place]: 178 QRSD: 104 QT: 362 QTc: 471 [place]: P: 61 [place]: 178 QRS: -27 T: -3 INTERPRETIVE STATEMENTS: Sinus tachycardia Nonspecific T wave abnormality Abnormal ECG No previous ECG available for comparison Electronically Signed On 10-08-22 16:46:46 CDT by Sherwin Jerry
[2022-10-09] MEDS: IPRATROPIUM BROM 0.5MG/2.5ML NEB SCH ×4 (01:55→20:40)
[2022-10-09] MEDS: ALBUTEROL 2.5 MG/3 ML NEB SOL NEB SCH ×4 (01:55→20:40)
[2022-10-09] MEDS: FENTANYL CITR 100 MCG/2 ML IV PRN ×3 (06:12→16:51)
--- NOTE | 2022-10-09 06:57 | P.PN ---
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 Elevated LFTs Hypertension Depression Stage II decubitus ulcer Acute on chronic COPD exacerbation CT imaging does not indicate any evidence of pneumonia; noted pulm nodules /metastatic disease Continue neb treatment with albuterol / Atrovent Continue O2 therapy denies prior admissions for copd, occasionally uses inhaler Sepsis unlikely no obvious source of infection SIRS criteria can be secondary to copd exacerbation and worsening metastatic cancer (leukocytosis) Blood cultures without growth rocephin given in ED, continue empirically for now Stage IV, 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 Griffin, reviewed OSH MRI - not candidate for treatment; recommends hospice patient with profound weakness, worsening over last month s/p colon resection in 2020 Elevated LFTs Secondary to metastatic cancer / large lesion noted on MRI/CT Total bilirubin elevated continue to monitor liver function - mild improvement Hypertension - Stable. Continue home medication Depression - Continue home medication Stage II decubitus ulcer - Wound care consult initiated Nausea/Vomiting/Diarrhea Continue Antiemetics Code: DNR Dispo: Social service consulted for placement - hospice
[2022-10-09] MEDS: CEFTRIAXONE 1,000 MG in NA CHLORIDE 0.9% 50 ML IVPB SCH (09:35)
[2022-10-09] MEDS: ASPIRIN 81 MG CHEWABLE TABLET PO SCH (09:35)
[2022-10-10] MEDS: IPRATROPIUM BROM 0.5MG/2.5ML NEB SCH ×4 (02:00→19:40)
[2022-10-10] MEDS: ALBUTEROL 2.5 MG/3 ML NEB SOL NEB SCH ×4 (02:00→19:40)
[2022-10-10 05:21] LABS: Absolute Lymphocytes (CBC) 1.1 K/uL (0.7-4.9); Hematocrit 34.3 % (39.6-49.0); Lymphocytes % 7.7 % (15.3-44.8); MCV 92.9 fL (80-100); MPV 8.9 fL (7.6-11.3); RBC Red Blood Cell Count 3.69 M/uL (4.33-5.43)
[2022-10-10 05:48] LABS: Albumin 1.2 g/dL (3.4-5.0); Bilirubin Total 5.3 mg/dL (0.2-1.0); Magnesium 2.1 mg/dL (1.6-2.4); Potassium 4.1 mEq/L (3.5-5.1); Protein, Total 5.4 g/dL (6.4-8.2)
--- NOTE | 2022-10-10 07:24 | P.PN ---
Date of Service: 10/10/22 Subjective: Complains of right sided leg pain (chronic) breathing feels much easier today minimal appetite ROS: 10 point ROS as noted above, otherwise negative Physical Exam: GEN: Alert, oriented, jaundiced HEENT: sclera icterus, EOMI CV: Regular rate and rhythm, no edema Pulm: mild labored respirations on room air, diminished at bases b/l ABD: Soft, minimal RUQ tenderness, distended, hepatomegaly Skin: Skin breakdown, Stage II decubitus ulcer Neuro: Normal speech, normal affect vitals reviewed Problem List: Acute on chronic COPD exacerbation Sepsis unlikely Stage IV, metastatic 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 Elevated LFTs Hypertension Depression Stage II decubitus ulcer Acute on chronic COPD exacerbation CT imaging does not indicate any evidence of pneumonia; noted pulm nodules /metastatic disease Continue neb treatment with albuterol / Atrovent Continue O2 therapy denies prior admissions for copd, occasionally uses inhaler Sepsis unlikely no obvious source of infection SIRS criteria can be secondary to copd exacerbation and worsening metastatic cancer (leukocytosis) Blood cultures without growth rocephin given in ED, continue empirically for now Stage IV, 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 Griffin, reviewed OSH MRI - not candidate for treatment; recommends hospice patient with profound weakness, worsening over last month s/p colon resection in 2020 Elevated LFTs Secondary to metastatic cancer / large lesion noted on MRI/CT Total bilirubin elevated continue to monitor liver function - mild improvement Hypertension - Stable. Continue home medication Depression - Continue home medication Stage II decubitus ulcer - Wound care consult initiated Nausea/Vomiting/Diarrhea Continue Antiemetics PT consult Code: DNR Dispo: Social service consulted for placement - hospice
[2022-10-10] MEDS: ASPIRIN 81 MG CHEWABLE TABLET PO SCH (09:18)
[2022-10-10] MEDS: MEDIHONEY 44 ML TOPICAL TUBE TOP SCH (09:18)
[2022-10-10] MEDS: CEFTRIAXONE 1,000 MG in NA CHLORIDE 0.9% 50 ML IVPB SCH (09:18)
[2022-10-10] MEDS: MUPIROCIN 2% OINT 22GM TUBE TOP SCH (09:19)
[2022-10-10] MEDS: FENTANYL CITR 100 MCG/2 ML IV PRN (19:57)
[2022-10-11] MEDS: IPRATROPIUM BROM 0.5MG/2.5ML NEB SCH ×4 (01:43→19:40)
[2022-10-11] MEDS: ALBUTEROL 2.5 MG/3 ML NEB SOL NEB SCH ×4 (01:43→19:40)
--- NOTE | 2022-10-11 08:06 | P.PN ---
Date of Service: 10/11/22 Subjective: Stable; no SOB Pain is well managed Waiting for hospice approval ROS: 10 point ROS as noted above, otherwise negative Physical Exam: GEN: Alert, oriented, jaundiced CV: Regular rate and rhythm, no edema Pulm: mild labored respirations on room air, diminished at bases b/l ABD: Soft, minimal RUQ tenderness, distended, hepatomegaly Skin: Skin breakdown, Stage II decubitus ulcer Neuro: Normal speech, normal affect vitals reviewed Problem List: Acute on chronic COPD exacerbation Sepsis unlikely Stage IV, metastatic 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 Elevated LFTs Hypertension Depression Stage II decubitus ulcer Acute on chronic COPD exacerbation CT imaging does not indicate any evidence of pneumonia; noted pulm nodules / metastatic disease Continue neb treatment with albuterol / Atrovent Continue O2 therapy denies prior admissions for copd, occasionally uses inhaler Sepsis unlikely no obvious source of infection SIRS criteria can be secondary to copd exacerbation and worsening metastatic cancer (leukocytosis) Blood cultures without growth rocephin given in ED, continue empirically for now Stage IV, 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 Griffin, reviewed OSH MRI - not candidate for treatment; recommends hospice patient with profound weakness, worsening over last month s/p colon resection in 2020 Elevated LFTs Secondary to metastatic cancer / large lesion noted on MRI/CT Total bilirubin elevated continue to monitor liver function - mild improvement Hypertension - Stable. Continue home medication Depression - Continue home medication Stage II decubitus ulcer - Wound care consult initiated Nausea/Vomiting/Diarrhea Continue Antiemetics PT consult Code: DNR Dispo: Social service consulted for placement - hospice
[2022-10-11] MEDS: CEFTRIAXONE 1,000 MG in NA CHLORIDE 0.9% 50 ML IVPB SCH (10:04)
[2022-10-11] MEDS: ASPIRIN 81 MG CHEWABLE TABLET PO SCH (10:04)
[2022-10-11] MEDS: FENTANYL CITR 100 MCG/2 ML IV PRN (15:16)
[2022-10-11] MEDS: MEDIHONEY 44 ML TOPICAL TUBE TOP SCH (15:18)
[2022-10-11] MEDS: MUPIROCIN 2% OINT 22GM TUBE TOP SCH (15:18)
[2022-10-12] MEDS: IPRATROPIUM BROM 0.5MG/2.5ML NEB SCH ×4 (01:55→19:35)
[2022-10-12] MEDS: ALBUTEROL 2.5 MG/3 ML NEB SOL NEB SCH ×4 (01:55→19:35)
--- NOTE | 2022-10-12 07:23 | P.PN ---
Date of Service: 10/12/22 Subjective: Feeling pretty good Breathing feels easier; improving Poor appetite; slightly better no trouble urinating, +flatus last BM 10/07 per report (patient unsure when last BM was) feels bloated after eating ROS: 10 point ROS as noted above, otherwise negative Physical Exam: GEN: Alert, oriented, jaundiced CV: Regular rate and rhythm, no edema Pulm: non labored respirations on room air, diminished at bases b/l ABD: Soft, minimal RUQ tenderness, distended, hepatomegaly Skin: Skin breakdown, Stage II decubitus ulcer Neuro: Normal speech, normal affect vitals reviewed Problem List: Acute on chronic COPD exacerbation Sepsis ruled out leukocytosis secondary to metastatic cancer Stage IV, metastatic 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 Elevated LFTs Hypertension Depression Stage II decubitus ulcer Constipation Acute on chronic COPD exacerbation CT imaging does not indicate any evidence of pneumonia; noted pulm nodules / metastatic disease Continue neb treatment with albuterol / Atrovent Continue O2 therapy denies prior admissions for copd, occasionally uses inhaler sepsis ruled out, no obvious source of infection, imaging negative Blood cultures without growth Leukocytosis secondary to metastatic cancer Rocephin given in the ED and completed empiric 5 days Stage IV, metastatic 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 Elevated LFTs worsening metastatic disease discussed with Dr. Griffin, reviewed OSH MRI - not candidate for treatment; recommends hospice patient with profound weakness, worsening over last month s/p colon resection in 2020 LFTs worsening Hypertension - Stable. Continue home medication Depression - Continue home medication Stage II decubitus ulcer - Wound care consult Nausea/Vomiting/Diarrhea Continue Antiemetics Constipation Stool softener as needed try enema/laxative if no relief PT consult Code: DNR Dispo: Social service consulted for placement - hospice
[2022-10-12 08:19] LABS: Absolute Lymphocytes (CBC) 0.9 K/uL (0.7-4.9); Hematocrit 35.5 % (39.6-49.0); Lymphocytes % 6.3 % (15.3-44.8); MCV 93.7 fL (80-100); MPV 8.9 fL (7.6-11.3); RBC Red Blood Cell Count 3.79 M/uL (4.33-5.43)
[2022-10-12 08:33] LABS: Albumin 1.1 g/dL (3.4-5.0); Bilirubin Total 6.8 mg/dL (0.2-1.0); Protein, Total 5.5 g/dL (6.4-8.2)
[2022-10-12 08:34] LABS: Magnesium 2.1 mg/dL (1.6-2.4)
[2022-10-12] MEDS: TAMSULOSIN 0.4 MG SR CAP PO SCH (08:35)
[2022-10-12] MEDS: ASPIRIN 81 MG CHEWABLE TABLET PO SCH (08:35)
[2022-10-12] MEDS: CEFTRIAXONE 1,000 MG in NA CHLORIDE 0.9% 50 ML IVPB SCH (08:35)
[2022-10-12] MEDS: MUPIROCIN 2% OINT 22GM TUBE TOP SCH (09:00)
[2022-10-12] MEDS: MEDIHONEY 44 ML TOPICAL TUBE TOP SCH (09:00)
[2022-10-12] MEDS: TRAMADOL HCL 50 MG TAB PO PRN (12:58)
[2022-10-12] MEDS ORDERED: POLYETHYL GLY 3350 17 GM/DOSE PO ONE (16:04)
[2022-10-12] MEDS ORDERED: POLYETHYL GLY 3350 17 GM/DOSE PO PRN (16:04)
[2022-10-12] MEDS ORDERED: LACTULOSE 20 GM/30 ML UCUP PO PRN (16:05)
[2022-10-12] MEDS: DOCUSATE NA 100 MG CAP PO SCH (21:55)
[2022-10-13] MEDS: IPRATROPIUM BROM 0.5MG/2.5ML NEB SCH ×4 (01:20→20:40)
[2022-10-13] MEDS: ALBUTEROL 2.5 MG/3 ML NEB SOL NEB SCH ×4 (01:20→20:40)
--- NOTE | 2022-10-13 07:00 | P.PN ---
Date of Service: 10/13/22 Subjective: remains constipated; no BM appetite slightly improving no new / worsening problems breathing feels good; pain is tolerable ROS: 10 point ROS as noted above, otherwise negative Physical Exam: GEN: Alert, oriented, jaundiced CV: Regular rate and rhythm, no edema Pulm: non labored respirations on room air, diminished at bases b/l ABD: Soft, minimal RUQ tenderness, distended, hepatomegaly Skin: Skin breakdown, Stage II decubitus ulcer Neuro: Normal speech, normal affect vitals reviewed Problem List: Acute on chronic COPD exacerbation Sepsis ruled out leukocytosis secondary to metastatic cancer Stage IV, metastatic 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 Elevated LFTs Hypertension Depression Stage II decubitus ulcer Constipation Acute on chronic COPD exacerbation CT imaging does not indicate any evidence of pneumonia; noted pulm nodules / metastatic disease Continue neb treatment with albuterol / Atrovent Continue O2 therapy denies prior admissions for copd, occasionally uses inhaler sepsis ruled out, no obvious source of infection, imaging negative Blood cultures without growth Leukocytosis secondary to metastatic cancer Rocephin given in the ED and completed empiric 5 days Stage IV, metastatic 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 Elevated LFTs worsening metastatic disease discussed with Dr. Griffin, reviewed OSH MRI - not candidate for treatment; recommends hospice patient with profound weakness, worsening over last month s/p colon resection in 2020 LFTs worsening Hypertension - Stable. Continue home medication Depression - Continue home medication Stage II decubitus ulcer - Wound care consult Nausea/Vomiting/Diarrhea Continue Antiemetics Constipation Stool softener as needed try enema/laxative if no relief PT consult Code: DNR Dispo: Social service consulted for placement - hospice
[2022-10-13] MEDS: TAMSULOSIN 0.4 MG SR CAP PO SCH (08:11)
[2022-10-13] MEDS: DOCUSATE NA 100 MG CAP PO SCH ×2 (08:11→20:21)
[2022-10-13] MEDS: MEDIHONEY 44 ML TOPICAL TUBE TOP SCH (08:16)
[2022-10-13] MEDS: MUPIROCIN 2% OINT 22GM TUBE TOP SCH (08:17)
[2022-10-13] MEDS: TRAMADOL HCL 50 MG TAB PO PRN (20:21)
[2022-10-13 21:04] LABS: Specific Gravity 1.023 (1.005-1.030); Urine Bacteria <20 /HPF (<20); Urine Bilirubin 2+ (Negative); Urine Blood Negative (Negative); Urine Clarity Turbid (Clear); Urine Color Dark-Yellow (Yellow); Urine Glucose NEGATIVE (Negative); Urine Mucus Slight /HPF (None Seen); Urine Protein TRACE (Negative); Urine RBC <5 /HPF (None Seen); Urine Urobilinogen 2+ (Normal); Urine pH 5.5 (5.0-7.0)
[2022-10-14] MEDS: ALBUTEROL 2.5 MG/3 ML NEB SOL NEB SCH ×3 (02:00→14:50)
[2022-10-14] MEDS: IPRATROPIUM BROM 0.5MG/2.5ML NEB SCH ×3 (02:00→14:50)
[2022-10-14] MEDS: TRAMADOL HCL 50 MG TAB PO PRN (04:51)
[2022-10-14] MEDS: TAMSULOSIN 0.4 MG SR CAP PO SCH (09:08)
[2022-10-14] MEDS: DOCUSATE NA 100 MG CAP PO SCH (09:09)
[2022-10-14] MEDS: MUPIROCIN 2% OINT 22GM TUBE TOP SCH (09:11)
[2022-10-14] MEDS: MEDIHONEY 44 ML TOPICAL TUBE TOP SCH (09:11)
[2022-10-14 09:27] VITALS: O2SAT 94
[2022-10-14 11:04] LABS: SARS-CoV-2 Antigen Rapid Res Negative (Negative)
--- NOTE | 2022-10-14 13:11 | P.DS ---
Admission Date: 10/07/22 Discharge Date: 10/14/22 Disposition: HOSPICE-MEDICAL FACILITY Discharge Condition: FAIR Reason for Admission: Generalized weakness, sob Brief History of Present Illness: Patient is a 72-year-old male with a past medical history significant for depression, hypertension, colon cancer status post resection, COPD who presents with complaint of generalized weakness which has been ongoing for quite some time now. Patient is a poor historian and was unable to provide accurate history. Patient follows up with an outpatient oncologist. Patient was recently diagnosed with liver metastasis and currently not on treatment. Patient reported that he had colon cancer diagnosed in 2020 and had a resection. Patient reported that he has not followed up with any oncologist since then until recently. Patient reported associated signs and symptoms of fatigue, weakness, dizziness, cough, nausea, vomiting, Sob, diarrhea, abdominal distention, abdominal pain, chills, bilateral lower extremity edema and generalized malaise. Patient reported that he followed up with his oncologist who ordered an MRI abdomen at another hospital. Patient went to her oncologist office today to check results and was send to the ER due to patient's clinical condition. Patient was hospitalized for further management. Hospital Course: Diagnosis Acute on chronic COPD exacerbation Sepsis ruled out leukocytosis secondary to metastatic cancer Stage IV, metastatic 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 Elevated LFTs Hypertension Depression Stage II decubitus ulcer Constipation Acute on chronic COPD exacerbation CT imaging does not indicate any evidence of pneumonia; noted pulm nodules / metastatic disease Placed on neb treatment with albuterol / Atrovent O2 therapy sepsis ruled out, no obvious source of infection, imaging negative Blood cultures without growth Leukocytosis secondary to metastatic cancer Rocephin given in the ED and completed empiric 5 days Stage IV, metastatic 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 Elevated LFTs worsening metastatic disease discussed with Dr. Griffin, reviewed OSH MRI - not candidate for treatment; Dr. Griffin recommended hospice patient with profound weakness, worsening over last month s/p colon resection in 2020 LFTs worsening. He has been accepted to hospice in a facility. Hypertension - Stable. Continued home medication Depression - Continued home medication Stage II decubitus ulcer -local wound care done. Nausea/Vomiting/Diarrhea Placed on antiemetics Constipation Stool softener and laxatives as needed Vital Signs/Physical Exam: Temp Pulse Resp BP Pulse Ox 97.7 F 101 H 15 107/61 92 10/14/22 12:00 10/14/22 12:00 10/14/22 12:00 10/14/22 12:00 10/14/22 12:00 General: In no apparent distress, Other (Awake) HEENT: Mucous membr. moist/pink Neck: JVD not distended Respiratory: Clear to auscultation bilaterally, Normal air movement Cardiovascular: Normal S1 S2, Other (Tachycardia) Gastrointestinal: Normal bowel sounds, Soft and benign, Non-distended Musculoskeletal: No swelling Laboratory Data at Discharge: WBC 15.10 thou/uL (4.3-10.9) H 10/12/22 08:00 Hgb 11.4 g/dL (13.6-17.9) L 10/12/22 08:00 Hct 35.5 % (39.6-49.0) L 10/12/22 08:00 Plt Count 127 thou/uL (152-406) L 10/12/22 08:00 PT 14.4 SECONDS (9.2-12.8) H 10/08/22 05:05 INR 1.23 10/08/22 05:05 APTT 34.3 SECONDS (24.3-36.9) 10/07/22 13:03 Sodium 129 mEq/L (136-145) L 10/12/22 08:00 Potassium 4.0 mEq/L (3.5-5.1) 10/12/22 08:00 BUN 23 mg/dL (7-18) H 10/12/22 08:00 Creatinine 0.65 mg/dL (0.70-1.30) L 10/12/22 08:00 Glucose 74 mg/dL (74-106) 10/12/22 08:00 Phosphorus 3.4 mg/dL (2.5-4.9) 10/07/22 13:03 Magnesium 2.1 mg/dL (1.6-2.4) 10/12/22 08:00 Total Bilirubin 6.8 mg/dL (0.2-1.0) H 10/12/22 08:00 AST 207 U/L (15-37) H 10/12/22 08:00 ALT 62 U/L (16-61) H 10/12/22 08:00 Alkaline Phosphatase 915 U/L (45-117) H 10/12/22 08:00 Home Medications: Tamsulosin [Flomax*] 1 tab PO DAILY 10/07/22 Albuterol Neb [Proventil 0.083% Neb Soln] 2.5 mg NEB [id number] amp 10/14/22 Docusate [Colace Cap*] 100 mg PO BID cap 10/14/22 Ipratropium Neb [Atrovent*] 0.5 mg NEB [id number] amp 10/14/22 Lactulose [Cephulac*] 15 ml PO BID PRN 10/14/22 Medihoney [Medihoney Woundcare Gel*] 1 appl TOP DAILY tube 10/14/22 Mupirocin Oint [Bactroban 2% Ointment*] 1 appl TOP DAILY tube 10/14/22 Followup: VINNY CASILLAS [Primary Care Provider] - Time spent managing pt's care (in minutes): 35
[2022-10-14 16:52] VITALS: BP 106/68; TEMP 97.3
== END 2022-10-14 17:00 | disposition hospice, inpatient (51) | DRG 191 ==
LOC: ER 10:10 → ERHOLD 14:04 → 4TH 15:41 → 2ND 10-12 11:15
PROVIDERS: ADMIT Hospitalist; ATTEND Internal Medicine
DX: J44.1 Chronic obstructive pulmonary disease with (acute) exacerbation (principal); C78.00 Secondary malignant neoplasm of unspecified lung; R64 Cachexia; C78.7 Secondary malignant neoplasm of liver and intrahepatic bile duct; F32.A Depression, unspecified; I10 Essential (primary) hypertension; L89.212 Pressure ulcer of right hip, stage 2; K59.00 Constipation, unspecified; F17.220 Nicotine dependence, chewing tobacco, uncomplicated; R79.89 Other specified abnormal findings of blood chemistry; Z66 Do not resuscitate; Z68.25 Body mass index [BMI] 25.0-25.9, adult; Z90.49 Acquired absence of other specified parts of digestive tract; Z85.038 Personal history of other malignant neoplasm of large intestine; Z28.310 Unvaccinated for COVID-19; Z20.822 Contact with and (suspected) exposure to COVID-19
CPT/HCPCS: 36415; 71045; 71250; 74150; 80048; 80053; 80076; 81001; 82947; 83605; 83735; 84100; 84484; 85025; 85610; 85730; 87040; 87811; 93005; 97161; 97530; 99285; J0696; J1650; J3010; J7050; J7613; J7644